=== PATIENT | female | born 1940 | race Caucasian/White ===

== ENCOUNTER → 2016-11-02 | Outpatient (CLI) | payer MEDICARE ==
[~2016-11-02] MED LIST: DENOSUMAB 60 MG/ML 1 ML SYRINGE SQ ONE
[2016-11-02 12:01] VITALS: BP 140/72; PULSE 66; RESP 14; TEMP 97.8
--- NOTE | 2016-11-15 14:42 | CDI ---
Please indicate, for medical necessity, whether the patient has bone metastases , which is indicated from the order that was checked off "patient being treated for bone metastases from solid tumor." Also, Prolia was given at time of visit. If you have any questions, please let me know. Thank you, YAZMIN Hess you may also contact Cristina Neol [phone] JEAN MARIE
--- NOTE | 2016-11-25 10:23 | CDI ---
Documentation Clarification Dear Dr. Torres, Please provide clarification of dx on your order for Prolia administration. Please confirm that patient had bone mets from breast in order for us to bill compliantly for medical necessity. You checked a box on the Prolia Order Form that said "Patient being seen for bone metastasis from solid tumor" PLEASE DICTATE A PROGRESS NOTE FOR THIS PATIENT THAT INDICATES IF PATIENT HAS BONE METS FROM BREAST AND IF YOU KNOW WHICH BONES ARE INVOLVED. If you have any questions, you many contact me between 8am and 5pm at [phone] Rut Noel MBA, [employer], [facility] Color Room Attendant, Theo AJ
== END | disposition home or self-care (01) ==
LOC: PROCWHC3 11:37
PROVIDERS: ATTEND Internal Medicine Hematology & Oncology
DX: M81.0 Age-related osteoporosis without current pathological fracture (principal); C50.812 Malignant neoplasm of overlapping sites of left female breast
CPT/HCPCS: 96372; J0897

== ENCOUNTER → 2017-11-08 | Outpatient (CLI) | payer MEDICARE ==
[2017-11-08 07:35] LABS: Blood Urea Nitrogen 12 mg/dL (7-17)
--- NOTE | 2017-11-08 10:55 | CT ---
EXAMINATION TYPE: CT abdomen w con DATE OF EXAM: 11/08/2017 COMPARISON: CT chest 04/06/2016 INDICATION: Abnormal liver function DLP: 420.10 mGycm, Automated exposure control for dose reduction was used. CONTRAST: 100 ml mL of Omnipaque 300. Study performed with Oral Contrast TECHNIQUE: Axial images were obtained from above the diaphragm to the pubic rami in the axial plane a t 5 mm thick sections. Reconstructed images are reviewed on the computer in the coronal plane. FINDINGS: Limited CT sections are obtained the lung bases. The lung bases are clear. Coronary artery calcific ation is present. Small hiatal hernia is present with some minimal contrast. CT ABDOMEN: Liver: Normal Spleen: Calcified splenic granuloma is present and stable. Pancreas: Normal Adrenal glands: The adrenal glands are normal. Gallbladder: Cholesterol gallstone is not excluded. Gallbladder otherwise appears unremarkable. Kidneys: No masses are evident. No hydronephrosis is present. No cysts are present. Delayed images were obtained through the kidneys, which remain unremarkable. Aorta: Vascular calcification is within the aorta. Inferior vena cava: Normal. Loops of bowel distended with oral contrast appear unremarkable. There are loops of bowel without con trast limiting their evaluation. Some scattered fecal debris is within the colon. There is made of a superior endplate compression deformity of L3.[address]: 1[address] Un[address] CT with attention to the liver. 2. Possible cholesterol gallstone.
== END | disposition home or self-care (01) ==
LOC: RADCTMAIN 06:53
PROVIDERS: ATTEND Internal Medicine Hematology & Oncology
DX: C18.7 Malignant neoplasm of sigmoid colon (principal); C50.812 Malignant neoplasm of overlapping sites of left female breast; R94.5 Abnormal results of liver function studies; Z88.8 Allergy status to other drugs, medicaments and biological substances; Z88.6 Allergy status to analgesic agent
CPT/HCPCS: 82565; 84520; 74160; 36415; Q9967

== ENCOUNTER 2018-02-14 09:03 | Day surgery (SDC) | payer MEDICARE ==
[2018-02-14 09:33] LABS: Mean Platelet Volume 7.5; Platelet Count 261 k/uL (150-450)
[2018-02-14] MEDS ORDERED: HYDROmorphone 2 MG TAB PO STA (09:37)
[2018-02-14 09:51] LABS: INR 1.1 (<1.2); Prothrombin Time 10.5 sec (9.0-12.0)
--- NOTE | 2018-02-14 10:35 | CT ---
EXAMINATION TYPE: CT biopsy liver DATE OF EXAM: 02/14/2018 COMPARISON: NONE HISTORY: Increased liver function CT DLP: 676mGycm PROCEDURE: The risks, applications, benefits and alternatives, were discussed with the patient and questions wer e answered. Informed consent was obtained. The patient was placed supine on the fluoroscopic table, prepped and draped in the usual sterile fashion. A 22-gauge system was utilized with direct passage of the needle into the right lobe liver lesion un cruz CT guidance. Samples were obtained with fine needle aspiration. Pathology confirmed adequate sa mple. The patient was stable throughout procedure and remained stable upon discharge from radiology. All e lements of maximal barrier and sterile technique were utilized. IMPRESSION: 1. Successful right lobe liver mass fine needle aspiration under CT guidance.
[2018-02-14 11:13] VITALS: BMI 22.4
[2018-02-14 12:42] VITALS: TEMP 98.8
[2018-02-14 14:42] VITALS: BP 130/64; PULSE 76; RESP 16
== END 2018-02-14 15:00 | disposition home or self-care (01) ==
LOC: RADPROMAIN 09:03 → 3SUR 10:30 → RADPROMAIN 15:00
PROVIDERS: ATTEND Internal Medicine Gastroenterology
DX: B17.9 Acute viral hepatitis, unspecified (principal); K74.0 Hepatic fibrosis
CPT/HCPCS: 47000; 77012; 85049; 85610; 88307; 88313; 88342

== ENCOUNTER → 2018-03-20 | Outpatient (CLI) | payer MEDICARE ==
[2018-03-20 08:22] LABS: Bilirubin, Delta 0.3 mg/dL (0.0-0.2); Bilirubin,Unconjugated 0.6 mg/dL (0.0-1.1); Total Bilirubin 0.9 mg/dL (0.2-1.3); Total Protein 7.9 g/dL (6.3-8.2)
[2018-03-20 16:51] LABS: Hepatitis A Antibody IgM Non-Reactive (Non-Reactive); Hepatitis B Core IgM Reactive (Non-Reactive)
--- NOTE | 2018-03-20 20:58 | MR ---
EXAMINATION TYPE: MR MRCP DATE OF EXAM: 03/20/2018 COMPARISON: CT abdomen 11/08/2017 and 04/06/2016 HISTORY: 78-year-old female INCREASED LIVER FUNCTIONS Technique: Multiplanar, multisequence images of the abdomen were acquired without contrast. Highly T2 weighted sequences were obtained of the pancreatic biliary system. Rotational 3-D reconstructions ge nerated on a dedicated independent workstation. FINDINGS: Small hiatal hernia. There is loss of signal in the liver on out of phase T1 weighted sequences suggesting underlying fatt y infiltration. The liver is mildly enlarged measuring 18.9 cm and there are hazy areas of increased T2 signal which also suggests fatty infiltration. Bile duct measures 7 mm, acceptable for patient's age. No suspicious intraluminal filling defect. The re is normal distal tapering and slight prominence to the intrahepatic system also felt to be accepta ble given patient's age. There is layering gravel/sludge within the gallbladder. No abnormal distention or surrounding inflamm ation. The flow void for the main portal vein is maintained. Adrenal glands, kidneys, spleen, and pancreas show no gross abnormality. No upper abdominal lymphadenopathy, ascites fluid, or gross bowel abnormality. Stable L3 superior endplate deformity. Incidental moderate spinal canal stenosis at L3-L4 and moderate to severe at L2-L3. IMPRESSION: 1. Mild hepatomegaly (18.9 cm) with signal changes suggesting underlying hepatic steatosis. 2. Mild prominence to the biliary system but with normal distal tapering. This is within normal limit s given patient's age. No intraluminal filling defect. 3. Layering gravel/sludge in the gallbladder.
[2018-03-21 10:26] LABS: ANA Pattern Speckled
== END | disposition home or self-care (01) ==
LOC: RADMRIMAIN 06:46
PROVIDERS: ATTEND Physician Assistant
DX: R16.0 Hepatomegaly, not elsewhere classified (principal)
CPT/HCPCS: 36415; 74181; 80074; 80076; 83516; 86038; 86039; 87340

== ENCOUNTER → 2018-03-23 | Outpatient (CLI) | payer MEDICARE ==
[2018-03-23 15:55] LABS: Alpha Fetoprotein, Tumor Mkr 11.4 ng/mL (0.0-7.9)
[2018-03-23 16:22] LABS: Hepatitis B Surface AB- Quant 3.5 mIU/mL
== END | disposition home or self-care (01) ==
LOC: LABWHC1 09:57
PROVIDERS: ATTEND Physician Assistant
DX: R76.8 Other specified abnormal immunological findings in serum (principal)
CPT/HCPCS: 36415; 82105; 86706; 86707; 87350; 87517

== ENCOUNTER → 2018-04-25 | Outpatient (CLI) | payer MEDICARE ==
--- NOTE | 2018-04-25 17:16 | BD ---
EXAMINATION TYPE: Axial Bone Density DATE OF EXAM: 04/25/2018 COMPARISON: 04/20/2016 CLINICAL HISTORY: Height: 62.7 IN Weight: 128 LBS FRAX RISK QUESTIONS: Family History (Parent hip fracture): YES MOTHER History of Fracture in Adulthood: RT ANKLE AGE 58 Secondary Osteoporosis: 3. Menopause before 45: YES AGE 41 5. Chronic liver disease: AUTO IMMUNE HEPATITIS Rheumatoid Arthritis: YES RISK FACTORS HISTORY OF: Family History of Osteoporosis: YES MOTHER Active: MODERATE Diet low in dairy products/other sources of calcium: YES Postmenopausal woman: AGE 41 Poor Health: YES MEDICATIONS: Additional Medications: CALCIUM WITH VIT D, ARIMIDEX, BLOOD PRESSURE PILLS Additional History: BREAST CANCER WITH CHEMO AND RADIATION 2012 EXAM MEASUREMENTS: Bone mineral densitometry was performed using the i-nexus System. Bone mineral density as measured about the Lumbar spine is: ----- L1-L4(G/cm2): 1.200 T Score Values are as follows: ----- L2: -0.1 ----- L3: 1.3 ----- L4: 0.4 ----- L1-L4: 0.2 Bone mineral density has: Increased 1.4% since study of: 04/20/2016 Bone mineral density about the R hip (g/cm2): 0.905 Bone mineral density about the L hip (g/cm2): 0.915 T Score values are as follows: -----R Neck: -1.0 -----L Neck: -0.9 -----R Total: -1.4 -----L Total: -1.1 Bone mineral density has: Decreased -5.5% since study of: 04.20.2016 IMPRESSION: Osteopenia (T Score between -2.5 and -1). There is slightly increased risk of fracture and the patient may be considered for treatment. Re-Screen 2-5 years. NOTE: T-SCORE=SD OF THE YOUNG ADULT MEAN.
== END | disposition home or self-care (01) ==
LOC: RADBDWWP 07:45
PROVIDERS: ATTEND Internal Medicine Hematology & Oncology
DX: C50.812 Malignant neoplasm of overlapping sites of left female breast (principal); M85.80 Other specified disorders of bone density and structure, unspecified site
CPT/HCPCS: 77080

== ENCOUNTER → 2018-06-04 | Outpatient (CLI) | payer MEDICARE ==
[2018-06-04 17:54] LABS: HCT 41.4 % (34.0-46.0); MCH 28.4 pg (25.0-35.0); MCHC 33.9 g/dL (31.0-37.0); MCV 83.7 fL (80.0-100.0); Mean Platelet Volume 7.2; Platelet Count 341 k/uL (150-450); RBC 4.95 m/uL (3.80-5.40); RDW 13.6 % (11.5-15.5); WBC 6.1 k/uL (3.8-10.6)
[2018-06-04 18:14] LABS: ALT 48 U/L (9-52); AST 71 U/L (14-36); Albumin 3.7 g/dL (3.5-5.0); Alkaline Phosphatase 82 U/L (38-126); Anion Gap 8 mmol/L; Blood Urea Nitrogen 21 mg/dL (7-17); Calcium 10.2 mg/dL (8.4-10.2); Carbon Dioxide 28 mmol/L (22-30); Chloride 103 mmol/L (98-107); Glucose 86 mg/dL (74-99); Potassium 4.1 mmol/L (3.5-5.1); Sodium 139 mmol/L (137-145); Total Bilirubin 1.1 mg/dL (0.2-1.3); Total Protein 7.5 g/dL (6.3-8.2)
== END ==
LOC: LABWHC1 17:21
PROVIDERS: ATTEND Physician Assistant
DX: B16.9 Acute hepatitis B without delta-agent and without hepatic coma (principal)
CPT/HCPCS: 36415; 80053; 85027; 86707; 87350; 87517

== ENCOUNTER → 2018-09-21 | Outpatient (CLI) | payer MEDICARE ==
[2018-09-21 17:47] LABS: HCT 40.8 % (34.0-46.0); HGB 12.9 gm/dL (11.4-16.0); MCHC 31.7 g/dL (31.0-37.0); MCV 85.3 fL (80.0-100.0); Mean Platelet Volume 6.8; Platelet Count 286 k/uL (150-450); RBC 4.78 m/uL (3.80-5.40); RDW 13.3 % (11.5-15.5); WBC 4.7 k/uL (3.8-10.6)
[2018-09-21 22:49] LABS: Albumin 3.7 g/dL (3.80-4.90); Albumin/Globulin Ratio 0.97 (1.20-2.10); Anion Gap 10.1 mmol/L (4.00-12.00); Calcium 9.4 mg/dL (8.7-10.3); Carbon Dioxide 26.9 mmol/L (21.6-31.8); Globulin 3.8 g/dL (1.6-3.3); Potassium 3.8 mmol/L (3.5-5.5); Total Bilirubin 0.6 mg/dL (0.3-1.2); Total Protein 7.5 g/dL (6.2-8.2)
[2018-09-25 12:57] LABS: Hepatitis B Virus DNA DETECTED (Not detected); Log HBV IU/mL 6.35 (<1.00)
[2018-09-25 13:37] LABS: Hepatitis BE Antibody NEG (Negative); Hepatitis BE Antigen POS (Negative)
== END | disposition home or self-care (01) ==
LOC: LABWHC1 16:40
PROVIDERS: ATTEND Physician Assistant
DX: B16.9 Acute hepatitis B without delta-agent and without hepatic coma (principal)
CPT/HCPCS: 36415; 80053; 85027; 86707; 87350; 87517

== ENCOUNTER → 2019-01-14 | Outpatient (CLI) | payer MEDICARE ==
--- NOTE | 2019-01-14 10:49 | US ---
LOWER EXTREMITY VENOUS INSUFFICIENCY SIDE PERFORMED: Bilateral 1) Color flow is present and patency is documented in the following vessels. No DVT or SVT is noted . EIV Common Femoral Vein Deep Femoral Vein Femoral Vein Popliteal Vein Proximal Calf Veins Greater Saph Vein Upper Small Saph Vein 2) There is venous reflux noted at the following venous levels: Left GSV. Right : EIV & GSV the valve does not close at all, so would be considered insufficient.
[2019-01-14 11:03] LABS: HCT 39.3 % (34.0-46.0); HGB 12.6 gm/dL (11.4-16.0); MCH 27.2 pg (25.0-35.0); MCHC 32.1 g/dL (31.0-37.0); MCV 84.7 fL (80.0-100.0); Mean Platelet Volume 7.7; Platelet Count 238 k/uL (150-450); RBC 4.64 m/uL (3.80-5.40)
[2019-01-14 11:18] LABS: ALT 46 U/L (9-52); AST 83 U/L (14-36); Albumin 3.5 g/dL (3.5-5.0); Alkaline Phosphatase 98 U/L (38-126); Anion Gap 3 mmol/L; Blood Urea Nitrogen 14 mg/dL (7-17); Calcium 9.3 mg/dL (8.4-10.2); Carbon Dioxide 32 mmol/L (22-30); Chloride 106 mmol/L (98-107); Glucose 73 mg/dL (74-99); Sodium 141 mmol/L (137-145); Total Bilirubin 0.4 mg/dL (0.2-1.3); Total Protein 7.5 g/dL (6.3-8.2)
--- NOTE | 2019-01-16 13:34 | P.ARTDOP ---
Arterial Doppler LOWER EXTREMITY ARTERIAL DOPPLER: DATE OF SERVICE: 01/14/2019 Reason for study: Bilateral calf ulcers. Doppler waveforms: Multiphasic bilaterally throughout. Pulse volume recording: []. Pressure gradients: None. Ankle-brachial indices: Cannot occlude. Toe pressures: 97 on the right, 97 on the left Impression: Normal study given normal waveforms and normal toe pressures. Nonocclusive viable ankle pressures may be related to calcific wall disease which is not hemodynamically significant..
== END | disposition home or self-care (01) ==
LOC: RADUSWWP 09:02
PROVIDERS: ATTEND Thoracic Surgery (Cardiothoracic Vascular Surgery)
DX: M79.604 Pain in right leg (principal); M79.605 Pain in left leg; E63.8 Other specified nutritional deficiencies; L97.212 Non-pressure chronic ulcer of right calf with fat layer exposed
CPT/HCPCS: 36415; 80053; 84134; 85027; 93923; 93970

== ENCOUNTER 2019-01-26 16:08 | Emergency (ER) | payer MEDICARE ==
[2019-01-26 16:19] VITALS: BP 136/69; PULSE 87; RESP 18; TEMP 99
--- NOTE | 2019-01-26 17:09 | ED ---
General Adult HPI - General Chief complaint: Skin/Abscess/Foreign Body Stated complaint: wounds on legs/stomach Time Seen by Provider: 01/26/19 16:31 Source: patient Mode of arrival: ambulatory Limitations: no limitations - History of Present Illness Initial comments: Dictation was produced using Jildy dictation software. please excuse any grammatical, word or spelling errors. Chief Complaint: 70-year-old female past medical history of breast cancer, hypertension, rheumatoid arthritis, bilateral lower extremity wounds presents with rash. History of Present Illness: 70-year-old female presents with rash that started this morning. Patient is currently undergoing dressing changes and topical treatment for bilateral extremity wounds. She is resting changes by home health care nurses. Patient noted her blood to start her legs and go up to her chest area. Patient denies fever, chills or night sweats. Patient has no complaints at this time. Patient is currently off her rheumatoid medications due to concerns of active hepatitic infection. Patient denies any runny nose, chills. No constitutional symptoms. The ROS documented in this emergency department record has been reviewed and confirmed by me. Those systems with pertinent positive or negative responses have been documented in the HPI. All other systems are other negative and/or noncontributory. PHYSICAL EXAM: General Impression: Alert and oriented x3, not in acute distress HEENT: Normocephalic atraumatic, extra-ocular movements intact, pupils equal and reactive to light bilaterally, mucous membranes moist. Cardiovascular: Heart regular rate and rhythm, S1&S2 audible, no murmurs, rubs or gallops Chest: Lungs clear to auscultation bilaterally, no rhonchi, no wheeze, no rales Abdomen: Bowel sounds present, abdomen soft, non-tender, non-distended, no organomegaly Musculoskeletal: Pulses present and equal in all extremities, no peripheral edema Motor: no focal deficits noted Neurological: CN II-XII grossly intact, no focal motor or sensory deficits noted Skin: Erythematous macules with pale center. No oral lesions, no conjunctival rash. Psych: Normal affect and mood ED course: 70-year-old female clinical presentation consistent with erythema multiforme. Patient appears to have the minor form given that there is no mucous membrane involvement. Patient's glucose presentation could also be secondary to drug reaction given that she was started on new topical medications. Patient otherwise has negative physical examination. Patient advised that this is self-limiting in nature. She should follow-up with primary care physician upon discharge. Return parameters discussed. Patient clear for discharge. - Related Data Home Medications Medication Instructions Recorded Confirmed Anastrozole [Arimidex] 1 mg PO DAILY 03/05/14 01/29/18 Metoprolol Tartrate [Lopressor] 50 mg PO BID 03/05/14 11/02/16 amLODIPine BESYLATE [Norvasc] 10 mg PO QAM 03/05/14 02/14/18 Citracal Petites 2 tab PO BID 11/02/16 02/14/18 Ibuprofen [Advil] 200 mg PO BID 01/29/18 02/14/18 methylPREDNISolone [Medrol Dose 4 mg PO DIRECTED 01/29/18 01/29/18 Pack] predniSONE 5 mg PO DIRECTED 02/14/18 02/14/18 Allergies Allergy/AdvReac Type Severity Reaction Status Date / Time Iodinated Contrast- Oral and Allergy "UNSURE OF Verified 01/26/19 16:19 IV Dye ALG BUT [Iodinated Contrast Media - PASSED OUT IV Dye] W/ VOMITING" propoxyphene napsylate Allergy Unknown Verified 01/26/19 16:19 [From Darvocet-N 100] Review of Systems ROS Statement: Those systems with pertinent positive or pertinent negative responses have been documented in the HPI. ROS Other: All systems not noted in ROS Statement are negative. Past Medical History Past Medical History: Cancer, Hypertension, Osteoarthritis (OA), Rheumatoid Arthritis (RA) Additional Past Medical History / Comment(s): arthralgia,HX BREAST CA 2012 double mastectomy and 33 TX RADIATION treatments ,COLON CA 2012 with surgery, recent UTI-completed ABX. History of Any Multi-Drug Resistant Organisms: None Reported Past Surgical History: Bowel Resection, Breast Surgery, Hysterectomy, Joint Replacement Additional Past Surgical History / Comment(s): 06/20/16 Total R knee arthroplasty. Other surgical hx: tumor removed from colon, double mastectomy, colonoscopy / RT KNEE REPLACEMENT apr 2016 Past Anesthesia/Blood Transfusion Reactions: No Reported Reaction Additional Past Anesthesia/Blood Transfusion Reaction / Comment(s): no previous blood transfusion Past Psychological History: No Psychological Hx Reported Smoking Status: Never smoker Past Alcohol Use History: None Reported Past Drug Use History: None Reported - Past Family History Mother Additional Family Medical History / Comment(s): AGE 91 W/ PNEUMONIA Father Family Medical History: Rheumatoid Arthritis (RA) Additional Family Medical History / Comment(s): AT AGE 91 Brother(s) Family Medical History: Cancer Additional Family Medical History / Comment(s): LUNG CA #1 BROTHER AT AGE 46,#2 BROTHER AT AGE 63 General Exam Limitations: no limitations Course Vital Signs 01/26/19 16:16 Temperature 99.0 F Pulse Rate 87 Respiratory 18 Rate Blood Pressure 136/69 O2 Sat by Pulse 98 Oximetry Disposition Clinical Impression: Rash Disposition: HOME SELF-CARE Condition: Good Instructions (If sedation given, give patient instructions): Acute Rash (ED) Is patient prescribed a controlled substance at d/c from ED?: No Referrals: Abhinav Abreu III, MD [Primary Care Provider] - 1-2 days Time of Disposition: 17:09
== END 2019-01-26 17:19 | disposition home or self-care (01) ==
LOC: EC 16:08
DX: R21 Rash and other nonspecific skin eruption (principal); I10 Essential (primary) hypertension; M19.90 Unspecified osteoarthritis, unspecified site; M06.9 Rheumatoid arthritis, unspecified; Z85.038 Personal history of other malignant neoplasm of large intestine; Z96.651 Presence of right artificial knee joint; Z85.3 Personal history of malignant neoplasm of breast; Z79.1 Long term (current) use of non-steroidal anti-inflammatories (NSAID); Z79.52 Long term (current) use of systemic steroids; Z79.899 Other long term (current) drug therapy; Z91.041 Radiographic dye allergy status; Z88.5 Allergy status to narcotic agent
CPT/HCPCS: 99282

== ENCOUNTER → 2019-02-08 | Outpatient (CLI) | payer MEDICARE ==
--- NOTE | 2019-02-08 15:29 | NM ---
EXAMINATION TYPE: NM bone 3 phase DATE OF EXAM: 02/08/2019 COMPARISON: NONE HISTORY: Osteoporosis, open left leg wound, right calf ulcer and right foot ulcer, breast carcinoma Triple phase bone scintigraphy was performed following the injection of 21 mCi Tc 99m MDP. Immediate images and 4.5 hours post injection images acquired through the lower legs and feet. Delayed whole-b yanira scanning was performed. FINDINGS: There is increased blood flow and blood pool activity identified to the left leg as compared to the r ight. Delayed images show uptake within the feet which is relatively symmetric consistent with degene rative changes. Photopenic defect present in the right knee compatible with prior knee arthroplasty, some mild uptake along the proximal tibial aspect of the arthroplasty likely to due to normal stress changes, no convincing uptake to suggest infection.. Uptake within the left knee is likely due to ost eoarthritis. Uptake at the sternomanubrial joints likely is degenerative as is the uptake in the hand s, wrists, shoulders. Soft tissue uptake is normal. IMPRESSION: No scintigraphic evidence of osseous metastatic disease or osteomyelitis.
== END | disposition home or self-care (01) ==
LOC: RADNMMAIN 07:16
PROVIDERS: ATTEND Internal Medicine Infectious Disease
DX: L97.212 Non-pressure chronic ulcer of right calf with fat layer exposed (principal)
CPT/HCPCS: 78315; A9503

== ENCOUNTER → 2019-04-17 | Outpatient (CLI) | payer MEDICARE ==
[2019-04-17 07:36] LABS: Basophils % (A) 0 %; Eosinophils # (A) 0.3 k/uL (0-0.7); Eosinophils % (A) 8 %; HCT 36.9 % (34.0-46.0); Lymphocytes # (A) 0.5 k/uL (1.0-4.8); Lymphocytes % (A) 11 %; MCH 28.1 pg (25.0-35.0); MCHC 32.6 g/dL (31.0-37.0); MCV 86.2 fL (80.0-100.0); Mean Platelet Volume 7.7; Monocytes # (A) 0.1 k/uL (0-1.0); Monocytes % (A) 3 %; Neutrophils # (A) 3.3 k/uL (1.3-7.7); Neutrophils % (A) 78 %; Platelet Count 209 k/uL (150-450); RBC 4.29 m/uL (3.80-5.40); RDW 14.6 % (11.5-15.5); WBC 4.3 k/uL (3.8-10.6)
[2019-04-17 13:30] LABS: African American GFR (CKD) 100.5 (60.0-200.0); Albumin 3.1 g/dL (3.80-4.90); Anion Gap 5.3 mmol/L (4.00-12.00); Carbon Dioxide 31.7 mmol/L (21.6-31.8); Globulin 3.1 g/dL (1.6-3.3); Non-African American GFR(CKD) 86.7 (60.0-200.0); Potassium 3.6 mmol/L (3.5-5.5); Total Bilirubin 0.4 mg/dL (0.3-1.2); Total Protein 6.2 g/dL (6.2-8.2)
[2019-04-19 14:05] LABS: Hepatitis BE Antigen POS (Negative)
[2019-04-19 14:07] LABS: Hepatitis BE Antibody NEG (Negative)
[2019-04-19 15:22] LABS: Hepatitis B Virus DNA DETECTED (Not detected)
== END | disposition home or self-care (01) ==
LOC: LABWHC1 07:08
DX: B18.1 Chronic viral hepatitis B without delta-agent (principal)
CPT/HCPCS: 36415; 80053; 82105; 85025; 86707; 87350; 87517

== ENCOUNTER → 2019-05-15 | Outpatient (CLI) | payer MEDICARE ==
--- NOTE | 2019-05-15 09:27 | US ---
EXAMINATION TYPE: US liver DATE OF EXAM: 05/15/2019 COMPARISON: CT CLINICAL HISTORY: R74.8 ABnormal Labs. Patient stated has hepatitis B; history of Breast CA/ bilatera l mastectomy, and colon CA. EXAM MEASUREMENTS: Liver Length: 15.8 cm Gallbladder Wall: 0.1 cm CBD: 0.7 cm Right Kidney: 11.8 x 5.2 x 4.1 cm Pancreas: heterogeneous tail Liver: wnl Gallbladder: multiple shadowing stones noted in fundus Evidence for sonographic Haas's sign: no CBD: wnl and is age appropriate for 7th decade Right Kidney: wnl IMPRESSION: 1. Debris filled gallbladder. Small gallstones or sludge could be considered.
== END | disposition home or self-care (01) ==
LOC: RADUSWWP 07:36
PROVIDERS: ATTEND Internal Medicine Gastroenterology
DX: R93.2 Abnormal findings on diagnostic imaging of liver and biliary tract (principal)
CPT/HCPCS: 76705

== ENCOUNTER → 2019-06-21 | Outpatient (CLI) | payer MEDICARE ==
--- NOTE | 2019-06-21 12:47 | NM ---
EXAMINATION TYPE: NM bone 3 phase DATE OF EXAM: 06/21/2019 COMPARISON: Prior 3 phase bone scan 02/08/2019, left foot 05/21/2019 HISTORY: Cellulitis left lower limb Triple phase bone scintigraphy was performed following the injection of 22.9 mCi Tc 99m MDP. Immedia te images and 3 hours post injection images acquired. FINDINGS: Increased blood flow blood pool imaging is noted to the left lower extremity. Some mild increased upt greg noted to the lateral aspect of the left foot on blood pool images, delayed images. Delayed imagin g through the feet shows relatively symmetric uptake likely degenerative within the feet. IMPRESSION: Findings likely to represent cellulitis, no evident osteomyelitis. Foot MRI could be performed for in creased sensitivity and specificity as indicated.
== END | disposition home or self-care (01) ==
LOC: RADNMMAIN 07:26
PROVIDERS: ATTEND Family Medicine
DX: L97.212 Non-pressure chronic ulcer of right calf with fat layer exposed (principal); L97.222 Non-pressure chronic ulcer of left calf with fat layer exposed; L03.116 Cellulitis of left lower limb; M05.20 Rheumatoid vasculitis with rheumatoid arthritis of unspecified site
CPT/HCPCS: 78315; A9503

== ENCOUNTER → 2019-10-14 | Outpatient (CLI) | payer MEDICARE ==
[2019-10-14 07:49] LABS: Basophils % (A) 0 %; Eosinophils # (A) 0.3 k/uL (0-0.7); Eosinophils % (A) 6 %; HCT 39.5 % (34.0-46.0); HGB 12.7 gm/dL (11.4-16.0); Lymphocytes # (A) 0.5 k/uL (1.0-4.8); Lymphocytes % (A) 11 %; MCH 26.8 pg (25.0-35.0); MCHC 32.2 g/dL (31.0-37.0); MCV 83.2 fL (80.0-100.0); Mean Platelet Volume 7.9; Monocytes # (A) 0.1 k/uL (0-1.0); Monocytes % (A) 2 %; Neutrophils # (A) 3.4 k/uL (1.3-7.7); Neutrophils % (A) 80 %; Platelet Count 199 k/uL (150-450); RBC 4.75 m/uL (3.80-5.40); RDW 13.4 % (11.5-15.5); WBC 4.2 k/uL (3.8-10.6)
[2019-10-14 11:47] LABS: African American GFR (CKD) 100.5 (60.0-200.0); Albumin 3.7 g/dL (3.80-4.90); Albumin/Globulin Ratio 1.23 (1.60-3.17); Anion Gap 6.4 mmol/L (4.00-12.00); BUN/Creat Ratio 21.67 Ratio (12.00-20.00); Calcium 8.8 mg/dL (8.7-10.3); Carbon Dioxide 28.6 mmol/L (21.6-31.8); Non-African American GFR(CKD) 86.7 (60.0-200.0); Potassium 3.6 mmol/L (3.5-5.5); Total Bilirubin 0.5 mg/dL (0.3-1.2); Total Protein 6.7 g/dL (6.2-8.2)
[2019-10-14 11:52] LABS: Alpha Fetoprotein, Tumor Mkr 2.6 ng/mL (0.0-7.9)
[2019-10-14 14:30] LABS: Hepatitis B Surface Antigen Reactive (Non-Reactive)
[2019-10-15 13:28] LABS: Hepatitis BE Antibody NEG (Negative)
[2019-10-15 16:24] LABS: Hepatitis B Virus DNA DETECTED (Not detected); Hepatitis B Virus DNA, Quant 43 IU/mL (<10); Log HBV IU/mL 1.63 (<1.00)
== END | disposition home or self-care (01) ==
LOC: LABWHC1 07:24
PROVIDERS: ATTEND Physician Assistant
DX: B18.1 Chronic viral hepatitis B without delta-agent (principal)
CPT/HCPCS: 36415; 80053; 82105; 85025; 86707; 87340; 87517

== ENCOUNTER 2019-10-30 12:42 | Inpatient (IN) | payer MEDICARE ==
[2019-10-30] MEDS ORDERED: PIPERACILLIN-TAZOBACTAM 3.375 GM in SODIUM CHLORIDE 0.9% 100 ML IVPB STA (13:50)
[2019-10-30] MEDS ORDERED: VANCOMYCIN IV PER PHARMACY 1 EACH MISC MISCELLANE PRN ×2 (13:50→16:36)
[2019-10-30] MEDS ORDERED: VANCOMYCIN 1,000 MG in SODIUM CHLORIDE 0.9% 250 ML IVPB STA (13:54)
[2019-10-30 14:13] LABS: Basophils % (A) 0 %; Eosinophils # (A) 0.3 k/uL (0-0.7); Eosinophils % (A) 5 %; HCT 39.2 % (34.0-46.0); HGB 12.9 gm/dL (11.4-16.0); Lymphocytes # (A) 0.7 k/uL (1.0-4.8); Lymphocytes % (A) 12 %; MCH 26.8 pg (25.0-35.0); MCHC 32.8 g/dL (31.0-37.0); MCV 81.8 fL (80.0-100.0); Monocytes # (A) 0.2 k/uL (0-1.0); Monocytes % (A) 3 %; Neutrophils # (A) 4.5 k/uL (1.3-7.7); Neutrophils % (A) 79 %; Platelet Count 197 k/uL (150-450); RBC 4.79 m/uL (3.80-5.40); RDW 13.6 % (11.5-15.5); WBC 5.7 k/uL (3.8-10.6)
--- NOTE | 2019-10-30 14:13 | ED ---
General Adult HPI - General Chief complaint: Wound/Laceration Stated complaint: wound on foot Time Seen by Provider: 10/30/19 12:45 Source: patient, RN notes reviewed, old records reviewed Mode of arrival: wheelchair Limitations: no limitations - History of Present Illness Initial comments: This is a 79-year-old female who has a significant history of peripheral vascular disease. Patient does have multiple wounds on both of her feet. Patient has been taken care of by the wound center they evaluated the patient recently and decided that the patient needed to come in the hospital to be admitted to get IV antibiotics and eventually go to custodial if she get a little bit better care until the wounds heal. His any fever chills. Patient denies any increased erythema or streaking of the legs. Patient states the wounds appear to be getting bigger and deeper. Patient denies any other symptoms at this time. - Related Data Home Medications Medication Instructions Recorded Confirmed Anastrozole [Arimidex] 1 mg PO DAILY 03/05/14 01/29/18 Metoprolol Tartrate [Lopressor] 50 mg PO BID 03/05/14 11/02/16 amLODIPine BESYLATE [Norvasc] 10 mg PO QAM 03/05/14 02/14/18 Citracal Petites 2 tab PO BID 11/02/16 02/14/18 Ibuprofen [Advil] 200 mg PO BID 01/29/18 02/14/18 methylPREDNISolone [Medrol Dose 4 mg PO DIRECTED 01/29/18 01/29/18 Pack] predniSONE 5 mg PO DIRECTED 02/14/18 02/14/18 Allergies Allergy/AdvReac Type Severity Reaction Status Date / Time clindamycin Allergy Rash/Hives Verified 10/30/19 12:46 Iodinated Contrast Media Allergy "UNSURE OF Verified 10/30/19 12:46 [Iodinated Contrast Media - ALG BUT IV Dye] PASSED OUT W/ VOMITING" propoxyphene napsylate Allergy Unknown Verified 10/30/19 12:46 [From Parveent-N 100] Review of Systems ROS Statement: Those systems with pertinent positive or pertinent negative responses have been documented in the HPI. ROS Other: All systems not noted in ROS Statement are negative. Past Medical History Past Medical History: Cancer, Hypertension, Osteoarthritis (OA), Rheumatoid Arthritis (RA) Additional Past Medical History / Comment(s): arthralgia,HX BREAST CA 2013 double mastectomy and 33 TX RADIATION treatments ,COLON CA 2012 with surgery, recent UTI-completed ABX. History of Any Multi-Drug Resistant Organisms: MRSA Date of last positivie culture/infection: 09/16/19 MDRO Source:: FOOT LT Past Surgical History: Bowel Resection, Breast Surgery, Hysterectomy, Joint Replacement Additional Past Surgical History / Comment(s): 06/20/16 Total R knee arthroplasty. Other surgical hx: tumor removed from colon, double mastectomy, colonoscopy / RT KNEE REPLACEMENT apr 2016 Past Anesthesia/Blood Transfusion Reactions: No Reported Reaction Additional Past Anesthesia/Blood Transfusion Reaction / Comment(s): no previous blood transfusion Past Psychological History: No Psychological Hx Reported Smoking Status: Never smoker Past Alcohol Use History: None Reported Past Drug Use History: None Reported - Past Family History Mother Additional Family Medical History / Comment(s): AGE 91 W/ PNEUMONIA Father Family Medical History: Rheumatoid Arthritis (RA) Additional Family Medical History / Comment(s): AT AGE 91 Brother(s) Family Medical History: Cancer Additional Family Medical History / Comment(s): LUNG CA #1 BROTHER AT AGE 46,#2 BROTHER AT AGE 63 General Exam - General Exam Comments Initial Comments: GENERAL: Patient is well-developed and well-nourished. Patient is nontoxic and well- hydrated and is in mild distress. ENT: Neck is soft and supple. No significant lymphadenopathy is noted. Oropharynx is clear. Moist mucous membranes. Neck has full range of motion without eliciting any pain. EYES: The sclera were anicteric and conjunctiva were pink and moist. Extraocular movements were intact and pupils were equal round and reactive to light. Eyelids were unremarkable. PULMONARY: Unlabored respirations. Good breath sounds bilaterally. No audible rales rhonchi or wheezing was noted. CARDIOVASCULAR: There is a regular rate and rhythm without any murmurs gallops or rubs. ABDOMEN: Soft and nontender with normal bowel sounds. SKIN: Skin is clear with no lesions or rashes and otherwise unremarkable. NEUROLOGIC: Patient is alert and oriented x3. Cranial nerves II through XII are grossly intact. Motor and sensory are also intact. Normal speech, volume and content. Symmetrical smile. MUSCULOSKELETAL: Normal extremities with adequate strength and full range of motion. Patient has a wound on the top of the left foot also on the lateral aspect of the foot below the lateral malleolus. Patient also has a wound on the lateral aspect of the right foot below the lateral malleolus which appears to be healing fairly well or no signs of erythema on either foot but there is some pus coming from the wound on the top of the left foot. LYMPHATICS: No significant lymphadenopathy is noted PSYCHIATRIC: Normal psychiatric evaluation. Limitations: no limitations Course Vital Signs 10/30/19 12:43 Temperature 97.8 F Pulse Rate 78 Respiratory 18 Rate Blood Pressure 118/69 O2 Sat by Pulse 98 Oximetry Medical Decision Making - Medical Decision Making EKG shows sinus rhythm with occasional PVC at 60 bpm WV interval is 160 QRS is 70 QT interval 412 QTC is 438. Patient's EKG shows no ST segment elevation or depression. X-ray of the foot showed no convincing evidence of osteomyelitis - Lab Data Result diagrams: 10/30/19 13:15 10/30/19 13:15 Lab Results 10/30/19 10/30/19 10/30/19 Range/Units 13:15 13:15 13:15 WBC 5.7 (3.8-10.6) k/uL RBC 4.79 (3.80-5.40) m/uL Hgb 12.9 (11.4-16.0) gm/dL Hct 39.2 (34.0-46.0) % MCV 81.8 (80.0-100.0) fL MCH 26.8 (25.0-35.0) pg MCHC 32.8 (31.0-37.0) g/dL RDW 13.6 (11.5-15.5) % Plt Count 197 (150-450) k/uL Neutrophils % 79 % Lymphocytes % 12 % Monocytes % 3 % Eosinophils % 5 % Basophils % 0 % Neutrophils # 4.5 (1.3-7.7) k/uL Lymphocytes # 0.7 L (1.0-4.8) k/uL Monocytes # 0.2 (0-1.0) k/uL Eosinophils # 0.3 (0-0.7) k/uL Basophils # 0.0 (0-0.2) k/uL PT 10.0 (9.0-12.0) sec INR 1.0 (<1.2) APTT 24.3 (22.0-30.0) sec Sodium 137 (137-145) mmol/L Potassium 4.4 (3.5-5.1) mmol/L Chloride 102 (98-107) mmol/L Carbon Dioxide 26 (22-30) mmol/L Anion Gap 9 mmol/L BUN 19 H (7-17) mg/dL Creatinine 0.63 (0.52-1.04) mg/dL Est GFR (CKD-EPI)AfAm >90 (>60 ml/min/1.73 sqM) Est GFR (CKD-EPI)NonAf 86 (>60 ml/min/1.73 sqM) Glucose 92 (74-99) mg/dL Plasma Lactic Acid Jas (0.7-2.0) mmol/L Calcium 9.7 (8.4-10.2) mg/dL Total Bilirubin 0.4 (0.2-1.3) mg/dL AST 54 H (14-36) U/L ALT 25 (4-34) U/L Alkaline Phosphatase 95 (38-126) U/L Total Protein 7.5 (6.3-8.2) g/dL Albumin 3.8 (3.5-5.0) g/dL 10/30/19 Range/Units 14:13 WBC (3.8-10.6) k/uL RBC (3.80-5.40) m/uL Hgb (11.4-16.0) gm/dL Hct (34.0-46.0) % MCV (80.0-100.0) fL MCH (25.0-35.0) pg MCHC (31.0-37.0) g/dL RDW (11.5-15.5) % Plt Count (150-450) k/uL Neutrophils % % Lymphocytes % % Monocytes % % Eosinophils % % Basophils % % Neutrophils # (1.3-7.7) k/uL Lymphocytes # (1.0-4.8) k/uL Monocytes # (0-1.0) k/uL Eosinophils # (0-0.7) k/uL Basophils # (0-0.2) k/uL PT (9.0-12.0) sec INR (<1.2) APTT (22.0-30.0) sec Sodium (137-145) mmol/L Potassium (3.5-5.1) mmol/L Chloride (98-107) mmol/L Carbon Dioxide (22-30) mmol/L Anion Gap mmol/L BUN (7-17) mg/dL Creatinine (0.52-1.04) mg/dL Est GFR (CKD-EPI)AfAm (>60 ml/min/1.73 sqM) Est GFR (CKD-EPI)NonAf (>60 ml/min/1.73 sqM) Glucose (74-99) mg/dL Plasma Lactic Acid Jas 1.0 (0.7-2.0) mmol/L Calcium (8.4-10.2) mg/dL Total Bilirubin (0.2-1.3) mg/dL AST (14-36) U/L ALT (4-34) U/L Alkaline Phosphatase (38-126) U/L Total Protein (6.3-8.2) g/dL Albumin (3.5-5.0) g/dL Disposition Clinical Impression: Wound infection Disposition: ADMITTED IP TO THIS HOSP Referrals: Abhinav Abreu III, MD [Primary Care Provider] - 1-2 days Time of Disposition: 16:35
[2019-10-30 14:28] LABS: ALT 25 U/L (4-34); AST 54 U/L (14-36); African American GFR (CKD) >90 (>60 ml/min/1.73 sqM); Albumin 3.8 g/dL (3.5-5.0); Alkaline Phosphatase 95 U/L (38-126); Anion Gap 9 mmol/L; Blood Urea Nitrogen 19 mg/dL (7-17); Calcium 9.7 mg/dL (8.4-10.2); Carbon Dioxide 26 mmol/L (22-30); Chloride 102 mmol/L (98-107); Glucose 92 mg/dL (74-99); Non-African American GFR(CKD) 86 (>60 ml/min/1.73 sqM); Potassium 4.4 mmol/L (3.5-5.1); Sodium 137 mmol/L (137-145); Total Bilirubin 0.4 mg/dL (0.2-1.3); Total Protein 7.5 g/dL (6.3-8.2)
[2019-10-30 14:32] LABS: Partial Thromboplastin Time 24.3 sec (22.0-30.0)
--- NOTE | 2019-10-30 14:35 | XR ---
EXAMINATION TYPE: XR foot complete LT DATE OF EXAM: 10/30/2019 CLINICAL HISTORY: Focal pain and swelling, infection dorsal surface fourth and fifth metatarsals, rul e out osteomyelitis. TECHNIQUE: Frontal, lateral, and oblique images of the left foot are obtained. COMPARISON: Prior left foot x-ray May 21, 2019. Most recent 3 phase bone scan June 21, 2019. FINDINGS: Demineralization is redemonstrated which is noted to low radiographic sensitivity for evalu ation of fine anatomic detail. In addition there is marked flexion of the toes makes evaluation at th is level suboptimal. There is hallux valgus positioning first metatarsal phalangeal joint with mild to moderate narrowing and spurring. Truncation of the first distal phalanx is redemonstrated. There is joint space narrowin g throughout the toes redemonstrated. Osseous overlap makes evaluation suboptimal. There is narrowing and spurring at base of metatarsals. No new definitive cortical destruction or periosteal reaction i s seen. Large superior and moderate-sized inferior calcaneal spurs are redemonstrated. Vascular calci fication again seen. IMPRESSION: There is no convincing radiographic evidence for acute osteomyelitis. No significant bryce nge from most recent x-ray.
[2019-10-30] MEDS ORDERED: SODIUM CHLORIDE 0.9% 1,000 ML IV ONE (16:35)
[2019-10-30] MEDS ORDERED: ALPRAZolam 0.25 MG TAB PO PRN (19:18)
--- NOTE | 2019-10-30 19:53 | HP ---
HISTORY AND PHYSICAL DATE OF SERVICE: 10/30/2019 CHIEF COMPLAINT: Bilateral leg wound infection, left more than the right. HISTORY OF PRESENT ILLNESS: This 79-year-old woman with a past medical history of multiple medical problems, including hypertension, history of DJD, rheumatoid arthritis, history of breast cancer, history of colon cancer, history of bowel resection, being followed by Dr. Abreu in the outpatient setting, was having bilateral wounds for several months. The patient apparently is attending Wound Care and Dr. Rivera and Dr. Garcia have seen the patient previously. Currently, because of lack of improvement, the patient was sent to [facility] and was admitted for further evaluation and treatment. There is no history of any fever, rigor or chills. No history of headache, loss of consciousness, seizures at this time. The patient had a bone scan in May last year which showed no evidence of osteomyelitis. PAST MEDICAL HISTORY: Hypertension DJD, history of rheumatoid arthritis, arthralgias, history of MRSA, history of bowel resection, breast surgery. HOME MEDICATIONS: 1. Norvasc 10 mg p.o. daily. 2. Lopressor 50 mg p.o. b.i.d. 3. Levaquin 500 mg p.o. daily. 4. Probiotic 1 p.o. daily. 5. Advil 200 mg p.o. b.i.d. 6. Entecavir 0.5 mg p.o. daily. 7. Citracal 2 tablets p.o. b.i.d. 8. Arimidex 1 mg p.o. daily. ALLERGIES: CLINDAMYCIN, IODINATED CONTRAST DYES AND PROPOXYPHENE. FAMILY HISTORY: History of rheumatoid arthritis in the family. SOCIAL HISTORY: No history of smoking. No history of alcohol. REVIEW OF SYSTEMS: ENT: Diminished hearing. Diminished vision. CARDIOVASCULAR SYSTEM: No angina, palpitations. RESPIRATORY SYSTEM: No cough, hemoptysis. GI: No nausea, vomiting. : No dysuria or retention. NERVOUS SYSTEM: No numbness, weakness. ALLERGY/IMMUNOLOGY: No asthma, hayfever. MUSCULOSKELETAL: As mentioned earlier. HEMATOLOGY/ONCOLOGY: No history of anemia. ENDOCRINE: No history of diabetes, hypothyroidism. CONSTITUTIONAL: As mentioned earlier. DERMATOLOGY: As mentioned earlier. RHEUMATOLOGY: As mentioned earlier. PSYCHIATRY: Negative. PHYSICAL EXAMINATION: Patient is alert, oriented x3. Pulse 90, blood pressure 147/78, respiration 18, temperature 97.9, pulse ox 97% on room air. HEENT: Conjunctivae normal. Oral mucosa moist. NECK: No jugular venous distention. No carotid bruit. No lymph node enlargement. CARDIOVASCULAR SYSTEM: S1, S2 muffled. No S3. No S4. RESPIRATORY SYSTEM: Breath sounds diminished at the bases. No rhonchi. No crackles. ABDOMEN: Soft, non-tender. No mass palpable. LEGS: Bilateral leg cellulitis and multiple ulcerations, especially on the left heel as well as the left dorsum of the feet present. Some surrounding cellulitis and erythema. NERVOUS SYSTEM: Higher functions as mentioned earlier. Moves all 4 limbs. No focal motor or sensory deficit. LYMPHATICS: No lymph node palpable in neck, axillae or groin. SKIN: As mentioned earlier. NAUSEA JOINTS: No active deforming arthropathy. LABS: CBC within normal limits. INR is 1. BUN is 19, creatinine 0.63. AST is 54. ASSESSMENT: 1. Bilateral leg cellulitis, left more than the right, with failure of outpatient treatment, with surrounding cellulitis. 2. Increased AST. 3. Rule out osteomyelitis. 4. Hypertension. 5. History of degenerative joint disease. 6. History of rheumatoid arthritis with deformities. 7. History of breast cancer with double mastectomy. 8. History of colon cancer with surgery. 9. History of urinary tract infections. 10.History of methicillin-resistant Staphylococcus aeruginosa. 11.History of degenerative joint disease and knee replacements. RECOMMENDATIONS AND DISCUSSION: In this 79-year-old woman who presented with multiple complex medical issues, at this time I recommend to continue the current medications, continue with symptomatic treatment. Will initiate broad-spectrum IV antibiotics in the form of Zosyn and vancomycin. Obtain cultures. Otherwise, obtain infectious disease consultation and consultation with Vascular Surgery, Dr. Rivera. The prognosis is guarded because of multiple complex medical issues. Further recommendations to follow. A copy of this dictation is being forwarded to Dr. Abreu, who is the primary physician. Home medication reconciliation was also done. Symptomatic treatment also will be provided. Further recommendations to follow. MMODL / IJN: [id number] /
[2019-10-30] MEDS: METOPROLOL TARTRATE 50 MG TAB PO SCH (20:23)
[2019-10-30] MEDS: IBUPROFEN 200 MG TAB PO SCH (20:23)
[2019-10-30] MEDS: HEPARIN SODIUM,PORCINE 5,000 UNIT/ML 1 ML VIAL SQ SCH (20:24)
[2019-10-30 22:36] LABS: Appearance,Urine Clear (Clear); Bilirubin,Urine Negative (Negative); Blood,Urine Negative (Negative); Color,Urine Light Yellow; Glucose,Urine (UA) Negative (Negative); Ketones,Urine Negative (Negative); Leukocyte Esterase,Urine Negative (Negative); Nitrite,Urine Negative (Negative); PH, Urine 7.5 (5.0-8.0); Protein,Urine Negative (Negative); Specific Gravity,Urine 1.008 (1.001-1.035); Urobilinogen,Urine <2.0 mg/dL (<2.0)
[2019-10-31] MEDS: PIPERACILLIN-TAZOBACTAM 3.375 GM in SODIUM CHLORIDE 0.9% 100 ML IVPB SCH ×2 (00:43→09:13)
[2019-10-31] MEDS ORDERED: VANCOMYCIN 1,000 MG in SODIUM CHLORIDE 0.9% 250 ML IVPB SCH ×2 (06:00→17:00)
[2019-10-31] MEDS ORDERED: IBUPROFEN 200 MG TAB PO SCH (07:00)
[2019-10-31] MEDS ORDERED: METOPROLOL TARTRATE 50 MG TAB PO SCH (07:00)
[2019-10-31] MEDS ORDERED: CITRACAL PETITES PO SCH (07:00)
[2019-10-31] MEDS: HEPARIN SODIUM,PORCINE 5,000 UNIT/ML 1 ML VIAL SQ SCH ×2 (09:11→19:47)
[2019-10-31] MEDS: IBUPROFEN 200 MG TAB PO SCH (09:11)
[2019-10-31] MEDS: METOPROLOL TARTRATE 50 MG TAB PO SCH ×2 (09:12→17:51)
[2019-10-31] MEDS: PANTOPRAZOLE 40 MG TABLET PO SCH (09:12)
[2019-10-31] MEDS: ANASTROZOLE 1 MG TAB PO SCH (09:12)
[2019-10-31] MEDS: LACTOBACILLUS ACIDOPH & BULGAR 1 EACH PACKET PO SCH (09:12)
[2019-10-31] MEDS: amLODIPine 10 MG TAB PO SCH (09:12)
[2019-10-31] MEDS: COLLAGENASE 250 UNIT/GM OINTMENT 30 GM TUBE TOPICAL SCH (09:13)
[2019-10-31 09:17] LABS: Basophils % (A) 0 %; Eosinophils # (A) 0.2 k/uL (0-0.7); Eosinophils % (A) 6 %; HCT 38.2 % (34.0-46.0); HGB 12.3 gm/dL (11.4-16.0); Lymphocytes # (A) 0.5 k/uL (1.0-4.8); Lymphocytes % (A) 14 %; MCH 26.7 pg (25.0-35.0); MCHC 32.2 g/dL (31.0-37.0); Mean Platelet Volume 7.9; Monocytes # (A) 0.1 k/uL (0-1.0); Monocytes % (A) 3 %; Neutrophils # (A) 2.9 k/uL (1.3-7.7); Neutrophils % (A) 75 %; Platelet Count 163 k/uL (150-450); RDW 13.4 % (11.5-15.5); WBC 3.8 k/uL (3.8-10.6)
[2019-10-31 09:31] LABS: African American GFR (CKD) >90 (>60 ml/min/1.73 sqM); Anion Gap 9 mmol/L; Blood Urea Nitrogen 14 mg/dL (7-17); Calcium 8.9 mg/dL (8.4-10.2); Carbon Dioxide 24 mmol/L (22-30); Chloride 106 mmol/L (98-107); Glucose 110 mg/dL (74-99); Non-African American GFR(CKD) >90 (>60 ml/min/1.73 sqM); Potassium 4.3 mmol/L (3.5-5.1); Sodium 139 mmol/L (137-145)
--- NOTE | 2019-10-31 09:32 | P.CONS ---
History of Present Illness - Reason for Consult Consult date: 10/31/19 Wound care - History of Present Illness This is a 79-year-old pleasant female who is known to the wound care center being seen on for a nonhealing ulceration to the dorsal foot. Patient had a positive culture that was treated with oral antibiotics however the ulceration continues to worsen becoming larger with increased drainage and maceration noticed around the periwound. Patient states that it has had increased odor. Patient has medical history includes breast CA with a double mastectomy, colon CA, osteoarthritis, rheumatoid arthritis, hypertension. Review of Systems Review Of Systems: Constitutional: No fever, no chills, no night sweats. No weight change. No weakness, fatigue or lethargy. No daytime sleepiness. Integumentary:reports wounds, no lesions. No rash or pruritus. No unusual bruising. No change in hair or nails. Past Medical History Past Medical History: Cancer, Hypertension, Osteoarthritis (OA), Rheumatoid Arthritis (RA) Additional Past Medical History / Comment(s): arthralgia,HX BREAST CA 2012 double mastectomy and 33 TX RADIATION treatments ,COLON CA 2012 with surgery, UTIs, chronic bilateral foot wounds History of Any Multi-Drug Resistant Organisms: MRSA Year Discovered:: 09/16/19 MDRO Source:: FOOT LT Past Surgical History: Bowel Resection, Breast Surgery, Hysterectomy, Joint Replacement Additional Past Surgical History / Comment(s): 06/20/16 Total R knee arthroplasty. Other surgical hx: tumor removed from colon, double mastectomy, colonoscopy / RT KNEE REPLACEMENT apr 2016 Past Anesthesia/Blood Transfusion Reactions: No Reported Reaction Additional Past Anesthesia/Blood Transfusion Reaction / Comm: no previous blood transfusion Past Psychological History: No Psychological Hx Reported Additional Psychological History / Comment(s): Pt resides alone. She uses no devices. She does not drive-family take her to [employer]. Smoking Status: Never smoker Past Alcohol Use History: None Reported Past Drug Use History: None Reported - Past Family History Mother Additional Family Medical History / Comment(s): AGE 91 W/ PNEUMONIA Father Family Medical History: Rheumatoid Arthritis (RA) Additional Family Medical History / Comment(s): AT AGE 91 Brother(s) Family Medical History: Cancer Additional Family Medical History / Comment(s): LUNG CA #1 BROTHER AT AGE 46,#2 BROTHER AT AGE 63 Medications and Allergies Home Medications Medication Instructions Recorded Confirmed Type Anastrozole [Arimidex] 1 mg PO DAILY@0700 03/05/14 10/30/19 History Metoprolol Tartrate [Lopressor] 50 mg PO BID@0700,18303/05/14 10/30/19 History amLODIPine BESYLATE [Norvasc] 10 mg PO DAILY@0700 03/05/14 10/30/19 History Citracal Petites 2 tab PO BID@0700,182911/02/16 10/30/19 History Ibuprofen [Advil] 200 mg PO BID@0700,18301/29/18 10/30/19 History Entecavir 0.5 mg PO DAILY@0530 10/30/19 10/30/19 History L.acidoph,Paracasei, B.lactis 1 cap PO DAILY@0700 10/30/19 10/30/19 History [Probiotic] Levofloxacin [Levaquin] 500 mg PO DAILY 10/30/19 10/30/19 History Allergies Allergy/AdvReac Type Severity Reaction Status Date / Time clindamycin Allergy Rash/Hives Verified 10/30/19 18:16 Iodinated Contrast Media Allergy "UNSURE OF Verified 10/30/19 18:16 [Iodinated Contrast Media - ALG BUT IV Dye] PASSED OUT W/ VOMITING" propoxyphene napsylate Allergy Unknown Verified 10/30/19 18:16 [From [facility]] Physical Exam Vitals: Vital Signs Temp Pulse Pulse Resp BP BP Pulse Ox 10/31/19 07:35 95 10/31/19 06:04 98.1 F 65 18 119/62 95 10/30/19 20:53 98.2 F 76 16 143/64 98 10/30/19 18:22 97.9 F 90 18 147/78 97 10/30/19 18:19 97.9 F 90 18 147/78 97 10/30/19 16:46 80 18 120/72 98 10/30/19 12:43 97.8 F 78 18 118/69 98 Intake and Output 10/30/19 10/31/19 10/31/19 22:59 06:59 14:59 Other: # Voids 1 1 Weight 54.431 kg Physical exam: General Appearance: Alert, cooperative, no distress, appears stated age. Skin: Right lateral lower leg venous leg ulcer measuring approximately 0.9 x 0.6 x 0.2 cm small amount of serous drainage has distinct margins and minimal granulation noted in the wound bed. With significant amount of slough. Left lateral lower extremity venous leg ulcer measuring approximately 4.3 x 2.2 x 0.3 cm with fatty layer exposure no tunneling or undermining. Of moderate amount of serosanguineous drainage. There is granulation seen within the room bed and slough and nonviable tissue. Left dorsal foot with fatty layer exposure that are Lopressor 1.9 x 1.7 x 1 cm with fatty layer exposure, no tunneling or undermining noted. Significant amount of drainage noted. Minimal granulation wound beds shows significant Slough and nonviable tissue. all other Skin color, texture, tugor normal, no rashes or lesions. Neurologic: Alert oriented x3 Results CBC & Chem 7: 10/31/19 08:52 10/30/19 13:15 Labs: Abnormal Lab Results - Last 24 Hours (Table) 10/30/19 10/30/19 10/31/19 Range/Units 13:15 13:15 08:52 Lymphocytes # 0.7 L 0.5 L (1.0-4.8) k/uL BUN 19 H (7-17) mg/dL AST 54 H (14-36) U/L Assessment and Plan (1) Non-pressure chronic ulcer of right lower leg with fat layer exposed Current Visit: Yes Status: Acute Code(s): L97.912 - NON-PRS CHR ULC UNSP PRT OF R LOW LEG W FAT LAYER EXPOSED SNOMED Code(s): 03126724 (2) Non-pressure chronic ulcer of left lower leg with fat layer exposed Current Visit: Yes Status: Acute Code(s): L97.922 - NON-PRS CHR ULC UNSP PRT OF L LOW LEG W FAT LAYER EXPOSED SNOMED Code(s): 77774560 (3) Non-pressure chronic ulcer of other part of left lower leg with fat layer exposed Current Visit: Yes Status: Acute Code(s): L97.822 - NON-PRS CHRONIC ULCER OTH PRT L LOW LEG W FAT LAYER EXPOSED SNOMED Code(s): 84762986 (4) Wound infection Current Visit: Yes Status: Acute Code(s): T14.8XXA - OTHER INJURY OF UNSPECIFIED BODY REGION, INITIAL ENCOUNTER; L08.9 - LOCAL INFECTION OF THE SKIN AND SUBCUTANEOUS TISSUE, UNSP SNOMED Code(s): 46465342 Plan: Apply Santyl to bilateral lateral ulcerations. Saline moistened gauze, dry g auze, rolled gauze and paper tape to secure. Change daily. Left dorsal foot apply absorptive silver dry, dry gauze rolled gauze and secure with paper tape. Patient will be scheduled for a PICC line for IV antibiotics. Patient has a current culture which was taken 10/14/2019 which showed diphtheria, alpha hemolytic streptococcus. MRI with and without contrast of left foot ordered. Patient to continue with wound care in the wound care center upon discharge. Thank you for the consultation. Any questions please contact the wound care center DNP note has been reviewed and discussed with Dr. Rivera and the impression and plan of care has been directed as dictated.
--- NOTE | 2019-10-31 11:52 | MR ---
EXAMINATION TYPE: MR foot LT wo/w con DATE OF EXAM: 10/31/2019 COMPARISON: X-ray 10/30/2019 HISTORY: Left anterior mid foot wound, left lateral ankle wound CONTRAST: Standard multiplanar, multisequence MRI departmental protocol utilizing 5.5 mL intravenous Gadavist g adolinium contrast. FINDINGS: There is diffuse osteopenia and severe arthropathy of the MTP, PIP and DIP joints. Arthropathy of the tarsal metatarsal junction is noted. Diffuse soft tissue edema overlying the dorsum of foot with skin thickening correlate for cellulitis. There is erosive change involving the head of the fifth metatarsal. This likely is chronic rather fabienne n related to osteomyelitis. The visualized ligamentous and tendinous structures are intact. No evidence of marrow edema. No pathologic enhancement. Appears to be a soft tissue wound overlying t he dorsum of foot adjacent to the he of the fifth and fourth metatarsals. IMPRESSION: Diffuse soft tissue edema with suspected dorsal foot skin ulceration. No diagnostic evidence of enhan cement or abnormal marrow signal to suggest osteomyelitis. Diffuse arthropathy.
[2019-10-31] MEDS: MULTIVITAMINS, THERA 1 EACH TAB PO SCH (12:22)
[2019-10-31] MEDS: IBUPROFEN 400 MG TAB PO PRN ×2 (12:22→22:54)
[2019-10-31] MEDS ORDERED: LIDOCAINE 1% INJ 10MG/ML (20 ML MDV) ONE (13:30)
[2019-10-31] MEDS ORDERED: LIDOCAINE 1% INJ 10MG/ML (20 ML MDV) SQ ONE (13:50)
--- NOTE | 2019-10-31 14:30 | IR ---
PICC LINE PLACEMENT: HISTORY: Infection requiring long-term antibiotic therapy PROCEDURE: Ultrasound and fluoroscopic guidance of PICC line placement. COMPLICATIONS: None ANESTHESIA: 1. 1% Lidocaine locally. FINDINGS/TECHNIQUE: The procedure was explained to the patient. The risks, complications, benefits and alternatives were discussed and any questions were answered. Informed consent was obtained. The patient was placed supine on the fluoroscopic table and prepped and draped in the usual sterile fash ion. Utilizing a 21 gauge needle and sonographic and fluoroscopic guidance, access in the right bas ilic vein was achieved and there is placement of a 0.018 guidewire. The vein is patent. A 4-F sheat h was placed over the guidewire. The guidewire and dilator were removed and a 4-F. PICC line was mercedes brittany through the sheath with the tip at the level of the SVC. The sheath was removed, the catheter wa s flushed and sutured into position. The patient was stable throughout the procedure and remained st able upon discharge from the Department of Radiology. The vein puncture was patent under ultrasound. A maurice scale image was obtained to document patency of the vein punctured. All elements of the maximal barrier technique were utilized. FLUOROSCOPY TIME: 0.4 minutes, one image submitted IMPRESSION: Successful PICC line placement under ultrasound and fluoroscopic guidance.
--- NOTE | 2019-10-31 14:44 | P.PN ---
Subjective Progress Note Date: 10/31/19 Principal diagnosis: This is a 79-year-old female who was recently admitted for bilateral foot wounds and is being closely monitored. Patient has been undergoing wound care with Dr. Rivera at the wound clinic with any lack of improvement. Wound care and infectious disease are following. Patient underwent MRI of the left foot today showing diffuse soft tissue edema with suspected dorsal foot skin ulcerations and no diagnostic evidence or abnormal marrow signal to suggest osteomyelitis. Given patient's extensive history of these wounds with no real signs of improvement patient will likely be receiving a PICC line today for long-term IV antibiotic therapy. Case management and social work are following for placement at [facility] on the [place] for continued IV antibiotic therapy in the outpatient setting. Currently no reports of chest pain, shortness of breath, or palpi tations. Patient is afebrile. No reports of nausea or vomiting and patient is tolerating diet. Objective - Vital Signs Vital signs: Vital Signs Temp 97.7 F 10/31/19 13:00 Pulse 65 10/31/19 13:00 Resp 24 10/31/19 13:00 BP 150/70 10/31/19 13:00 Pulse Ox 96 10/31/19 13:00 Intake & Output 10/30/19 10/31/19 10/31/19 18:59 06:59 18:59 Intake Total 780 Balance 780 Weight 54.431 kg Intake: Oral 780 Other: Voiding Method Toilet # Voids 1 2 - Exam Gen: This is a 79-year-old female sitting up in the chair, awake, alert and oriented 3, well-developed, well-nourished. Temp is 97.7F, pulse is 65, respirations is 24, blood pressure is 150/70, oxygen saturation is 96% on room air. HEENT: Head is atraumatic, normocephalic. Pupils equal, round. Sclerae is anicteric. NECK: Supple. No JVD. No lymphadenopathy. No thyromegaly. LUNGS: Respiratory system shows diminished breath sounds at the bases with no wheezing or rhonchi noted. No intercostal retractions. HEART: S1, S2 are muffled ABDOMEN: Soft. Bowel sounds are present. No masses. No tenderness. EXTREMITIES: No pedal edema. No calf tenderness. Bilateral feet have recently been dressed and treated this morning by the wound care nurse practitioner. Bilateral leg cellulitis along with multiple ulcerations, especially in the left heel as well as the left dorsum of the foot is present. Surrounding cellulitis and erythema slightly improved. Kerlex dressing noted as mentioned previously NEUROLOGICAL: Patient is awake, alert and oriented x3. Cranial nerves 2 through 12 are grossly intact. - Labs CBC & Chem 7: 10/31/19 08:52 10/31/19 08:52 Labs: Abnormal Lab Results - Last 24 Hours (Table) 10/30/19 10/31/19 10/31/19 Range/Units 13:15 08:52 08:52 Lymphocytes # 0.5 L (1.0-4.8) k/uL BUN 19 H (7-17) mg/dL Glucose 110 H (74-99) mg/dL AST 54 H (14-36) U/L Assessment and Plan Assessment: Bilateral leg cellulitis, left more than the right, with failure of outpatient treatment, with surrounding cellulitis Increased AST Rule out osteomyelitis Hypertension History of degenerative joint disease History of rheumatoid arthritis with deformities History of breast cancer with double mastectomy History of colon cancer surgery History of urinary tract infections History of methicillin-resistant Staphylococcus aeruginosa History degenerative joint disease and knee replacements DVT prophylaxis GI prophylaxis Recommendations and discussion: Recommend to continue current medications, management, and symptomatic treatment. To continue with wound care and IV antibiotics in the form of Zosyn and vancomycin. Infectious disease is following. Patient underwent MRI of the left foot as mentioned previously showing no signs of osteomyelitis. Patient is to receive a PICC line for long-term IV antibiotic therapy. Case management and social work following for possible placement at [facility] on the [place] for continued IV antibiotic therapy. Patient will be requiring a 3 night stay for continued wound care and IV antibiotics. Due to multiple complex medical issues prognosis is guarded. Further recommendations to follow. Will continue to monitor closely.
[2019-10-31] MEDS: AMPICILLIN-SULBACTAM 3 GM in SODIUM CHLORIDE 0.9% 100 ML IVPB SCH ×2 (17:51→22:54)
[2019-10-31] MEDS: VANCOMYCIN 1,000 MG in SODIUM CHLORIDE 0.9% 250 ML IVPB SCH (19:48)
[2019-11-01] MEDS: IBUPROFEN 400 MG TAB PO PRN ×2 (00:39→10:32)
[2019-11-01] MEDS: AMPICILLIN-SULBACTAM 3 GM in SODIUM CHLORIDE 0.9% 100 ML IVPB SCH ×4 (05:18→23:10)
[2019-11-01] MEDS: amLODIPine 10 MG TAB PO SCH (06:03)
[2019-11-01] MEDS: LACTOBACILLUS ACIDOPH & BULGAR 1 EACH PACKET PO SCH (06:03)
[2019-11-01] MEDS: METOPROLOL TARTRATE 50 MG TAB PO SCH ×2 (06:03→17:17)
[2019-11-01] MEDS: VANCOMYCIN 1,000 MG in SODIUM CHLORIDE 0.9% 250 ML IVPB SCH ×2 (06:04→18:23)
--- NOTE | 2019-11-01 08:46 | P.CONS ---
History of Present Illness - Reason for Consult Consult date: 10/31/19 left foot wound and cellulitis Requesting physician: Fred Galindo - Chief Complaint non healing wounds to left foot and pain x weeks - History of Present Illness Patient is a 79-year female past medical history significant for rheumatoid arthritis and peripheral vascular disease commended physician who did have a chronic nonhealing wound to the left foot area for the patient has been treated at [facility] wound care grady for last couple of months patient francesca cameron was evaluated in the wound care center with concern for nonhealing of these wounds and underlying cellulitis and a question of osteomyelitis she has been advised to go to the hospital for admission and IV antibiotic therapy patient mentioning she has these wounds for couple of months now and has been treated with different modalities patient noticed recent worsening of the wound on her left foot dorsum area that has been becoming more swollen red and painful described the pain to be throbbing intensity 5-6 out of 10 and no radiation she also have a wound on her left ankle area for the same duration the no clear history of any trauma patient denies high-grade fever Reiger's or chills on arrival to the ER the patient did have x-rays of the foot which shows no convincing radiographic evidence of acute osteomyelitis subsequently the patient did have MRI of the left foot completed this morning we did shows evidence of cellulitis but no osteomyelitis patient has been treated with vancomycin and Zosyn infectious was consulted for further recommendation regarding antibiotic therapy she did have blood cultures drawn which are currently pending and no local culture has been done this admission. Review of Systems Positive point has been mentioned in HPI rest of the systems are negative Past Medical History Past Medical History: Cancer, Hypertension, Osteoarthritis (OA), Rheumatoid Arthritis (RA) Additional Past Medical History / Comment(s): arthralgia,HX BREAST CA 2012 double mastectomy and 33 TX RADIATION treatments ,COLON CA 2012 with surgery, UTIs, chronic bilateral foot wounds History of Any Multi-Drug Resistant Organisms: MRSA Year Discovered:: 09/16/19 MDRO Source:: FOOT LT Past Surgical History: Bowel Resection, Breast Surgery, Hysterectomy, Joint Replacement Additional Past Surgical History / Comment(s): 06/20/16 Total R knee arthroplasty. Other surgical hx: tumor removed from colon, double mastectomy, colonoscopy / RT KNEE REPLACEMENT apr 2016 Past Anesthesia/Blood Transfusion Reactions: No Reported Reaction Additional Past Anesthesia/Blood Transfusion Reaction / Comm: no previous blood transfusion Past Psychological History: No Psychological Hx Reported Additional Psychological History / Comment(s): Pt resides alone. She uses no d evices. She does not drive-family take her to [employer]. Smoking Status: Never smoker Past Alcohol Use History: None Reported Past Drug Use History: None Reported - Past Family History Mother Additional Family Medical History / Comment(s): AGE 91 W/ PNEUMONIA Father Family Medical History: Rheumatoid Arthritis (RA) Additional Family Medical History / Comment(s): AT AGE 91 Brother(s) Family Medical History: Cancer Additional Family Medical History / Comment(s): LUNG CA #1 BROTHER AT AGE 46,#2 BROTHER AT AGE 63 Medications and Allergies Home Medications Medication Instructions Recorded Confirmed Type Anastrozole [Arimidex] 1 mg PO DAILY@0700 03/05/14 10/30/19 History Metoprolol Tartrate [Lopressor] 50 mg PO BID@0700,1830 03/05/14 10/30/19 History amLODIPine BESYLATE [Norvasc] 10 mg PO DAILY@0700 03/05/14 10/30/19 History Citracal Petites 2 tab PO BID@0700,1830 11/02/16 10/30/19 History Ibuprofen [Advil] 200 mg PO BID@0700,1830 01/29/18 10/30/19 History Entecavir 0.5 mg PO DAILY@0530 10/30/19 10/30/19 History L.acidoph,Paracasei, B.lactis 1 cap PO DAILY@0700 10/30/19 10/30/19 History [Probiotic] Levofloxacin [Levaquin] 500 mg PO DAILY 10/30/19 10/30/19 History Allergies Allergy/AdvReac Type Severity Reaction Status Date / Time clindamycin Allergy Rash/Hives Verified 10/30/19 18:16 Iodinated Contrast Media Allergy "UNSURE OF Verified 10/30/19 18:16 [Iodinated Contrast Media - ALG BUT IV Dye] PASSED OUT W/ VOMITING" propoxyphene napsylate Allergy Unknown Verified 10/30/19 18:16 [From Darvocet-N 100] Physical Exam Vitals: Vital Signs Temp Pulse Pulse Resp BP BP Pulse Ox 10/31/19 09:00 18 10/31/19 07:35 95 03/05/20 06:04 98.1 F 65 18 119/62 95 10/30/19 20:53 98.2 F 76 16 143/64 98 10/30/19 18:22 97.9 F 90 18 147/78 97 10/30/19 18:19 97.9 F 90 18 147/78 97 10/30/19 16:46 80 18 120/72 98 Intake and Output 10/30/19 10/31/19 10/31/19 22:59 06:59 14:59 Intake Total 240 Balance 240 Intake: Oral 240 Other: Voiding Method Toilet # Voids 1 1 Weight 54.431 kg GENERAL DESCRIPTION: Elderly female up in the chair, no distress. No tachypnea or accessory muscle of respiration use. HEENT: Shows Pallor , no scleral icterus. Oral mucous membrane is dry. NECK: Trachea central, no thyromegaly. LUNGS: Unlabored breathing. Clear to auscultation anteriorly. No wheeze or crackle. HEART: S1, S2, regular rate and rhythm. ABDOMEN: Soft, no tenderness , guarding or rigidity EXTREMITIES: Left foot dorsum did have a wound with some slough tissue some redness and her pressure purulent material came out which was culture she did have ulceration to the left lateral ankle area with no significant slough tissue minimal surrounding swelling redness and no foul-smelling drainage sKIN: No rash, no masses palpable. NEUROLOGICAL: The patient is awake, alert, oriented x3, mood and affect normal. Results CBC & Chem 7: 10/31/19 08:52 10/31/19 08:52 Labs: Abnormal Lab Results - Last 24 Hours (Table) 10/30/19 10/30/19 10/31/19 Range/Units 13:15 13:15 08:52 Lymphocytes # 0.7 L (1.0-4.8) k/uL BUN 19 H (7-17) mg/dL Glucose 110 H (74-99) mg/dL AST 54 H (14-36) U/L 10/31/19 Range/Units 08:52 Lymphocytes # 0.5 L (1.0-4.8) k/uL BUN (7-17) mg/dL Glucose (74-99) mg/dL AST (14-36) U/L Assessment and Plan Assessment: patient presenting to the hospital for chronic nonhealing wound to the left foot and heel area which has been there for a couple of months now in this patient who did have history of rheumatoid arthritis and also underlying PAD recent cultures done in September did shows alphahemolytic Streptococcus and anaerobic gram-negative bacilli however it is not very clear if he has received antibiotic for the same also she has cultures done in August which was positive for MRSA will need to cover for this pathogen while waiting for the culture was done today to be finalized and recommend discharge antibiotic therapy. (1) Cellulitis of left foot Current Visit: Yes Status: Acute Code(s): L03.116 - CELLULITIS OF LEFT LOWER LIMB SNOMED Code(s): 035145407 (2) Non-pressure chronic ulcer of left lower leg with fat layer exposed Current Visit: Yes Status: Acute Code(s): L97.922 - NON-PRS CHR ULC UNSP PRT OF L LOW LEG W FAT LAYER EXPOSED SNOMED Code(s): 38235205 (3) Wound infection Current Visit: Yes Status: Acute Code(s): T14.8XXA - OTHER INJURY OF UNSPECIFIED BODY REGION, INITIAL ENCOUNTER; L08.9 - LOCAL INFECTION OF THE SKIN AND SUBCUTANEOUS TISSUE, UNSP SNOMED Code(s): 05473263 Plan: 1-vancomycin pharmacy to dose her with a target trough of 15 while watching her kidney function and Vanco trough closely. 2-discontinue Zosyn to decrease risk of nephrotoxicity and add Unasyn 3 g every 6 hours 3-local wound care to the left foot and ankle wound care with dry Aquacel silver dressing to be changed daily We will follow on clinical condition and cultures to further adjust medication i f needed Thank you for this consultation we will follow the patient along with you Time with Patient: Greater than 30
[2019-11-01 09:29] LABS: Basophils % (A) 0 %; Eosinophils # (A) 0.2 k/uL (0-0.7); Eosinophils % (A) 6 %; HCT 37.2 % (34.0-46.0); HGB 11.9 gm/dL (11.4-16.0); Lymphocytes # (A) 0.5 k/uL (1.0-4.8); Lymphocytes % (A) 14 %; MCH 26.7 pg (25.0-35.0); MCHC 31.9 g/dL (31.0-37.0); MCV 83.7 fL (80.0-100.0); Mean Platelet Volume 8.3; Monocytes # (A) 0.1 k/uL (0-1.0); Monocytes % (A) 3 %; Neutrophils # (A) 2.9 k/uL (1.3-7.7); Neutrophils % (A) 76 %; Platelet Count 168 k/uL (150-450); RBC 4.44 m/uL (3.80-5.40); RDW 13.6 % (11.5-15.5); WBC 3.8 k/uL (3.8-10.6)
[2019-11-01 09:41] LABS: African American GFR (CKD) >90 (>60 ml/min/1.73 sqM); Anion Gap 7 mmol/L; Blood Urea Nitrogen 12 mg/dL (7-17); Calcium 8.6 mg/dL (8.4-10.2); Carbon Dioxide 26 mmol/L (22-30); Chloride 106 mmol/L (98-107); Glucose 117 mg/dL (74-99); Non-African American GFR(CKD) >90 (>60 ml/min/1.73 sqM); Potassium 4.3 mmol/L (3.5-5.1); Sodium 139 mmol/L (137-145)
[2019-11-01] MEDS: PANTOPRAZOLE 40 MG TABLET PO SCH (10:28)
[2019-11-01] MEDS: COLLAGENASE 250 UNIT/GM OINTMENT 30 GM TUBE TOPICAL SCH (10:28)
[2019-11-01] MEDS: ANASTROZOLE 1 MG TAB PO SCH (10:28)
[2019-11-01] MEDS: HEPARIN SODIUM,PORCINE 5,000 UNIT/ML 1 ML VIAL SQ SCH ×2 (10:28→20:08)
[2019-11-01 11:28] VITALS: BMI 21.2
[2019-11-01] MEDS: MULTIVITAMINS, THERA 1 EACH TAB PO SCH (13:43)
--- NOTE | 2019-11-01 15:20 | P.PN ---
Subjective Progress Note Date: 11/01/19 Principal diagnosis: This is a 79-year-old female who was recently admitted for bilateral foot wounds and is being closely monitored. Patient has been undergoing wound care with Dr. Rivera at the wound clinic with any lack of improvement. Wound care and infectious disease are following. Patient underwent MRI of the left foot today showing diffuse soft tissue edema with suspected dorsal foot skin ulcerations and no diagnostic evidence or abnormal marrow signal to suggest osteomyelitis. Given patient's extensive history of these wounds with no real signs of improvement patient will likely be receiving a PICC line today for long-term IV antibiotic therapy. Case management and social work are following for placement at [facility] [place] for continued IV antibiotic therapy in the outpatient setting. Currently no reports of chest pain, shortness of breath, or palpi tations. Patient is afebrile. No reports of nausea or vomiting and patient is tolerating diet. 11/01/2019 Patient is seen and evaluated in follow-up today and currently being treated for bilateral foot wounds and is maintained on IV antibiotics in the form of Unasyn and vancomycin and will continue at this time. Infectious disease and wound care are following. Patient will continue with IV antibiotics in the outpatient setting and patient received a PICC line in the right upper extremity yesterday. Currently no reports of chest pain, shortness of breath, or palpitations. Patient is afebrile. No reports of nausea or vomiting and patient is tolerating diet. Patient to continue with daily dressing changes. Repeat labs reviewed today and are within normal limits. Current creatinine is 0.48. Will continue to monitor closely. Objective - Vital Signs Vital signs: Vital Signs Temp 98 F 11/01/19 13:10 Pulse 73 11/01/19 13:10 Resp 20 11/01/19 13:10 BP 146/74 11/01/19 13:10 Pulse Ox 98 11/01/19 13:10 Intake & Output 10/31/19 11/01/19 11/01/19 18:59 06:59 18:59 Intake Total 780 1180 120 Balance 780 1180 120 Weight 54.431 kg Intake: Oral 780 1180 120 Other: Voiding Method Toilet # Voids 2 4 4 - Exam Gen: This is a 79-year-old female sitting up in the chair, awake, alert and oriented 3, well-developed, well-nourished. Temp is 98.4F, pulse is 73, respirations is 20, blood pressure is 146/74, oxygen saturation is 98 % on room air. HEENT: Head is atraumatic, normocephalic. Pupils equal, round. Sclerae is anicte andre. NECK: Supple. No JVD. No lymphadenopathy. No thyromegaly. LUNGS: Respiratory system shows diminished breath sounds at the bases with no wheezing or rhonchi noted. No intercostal retractions. HEART: S1, S2 are muffled ABDOMEN: Soft. Bowel sounds are present. No masses. No tenderness. EXTREMITIES: No pedal edema. No calf tenderness. Bilateral feet have recently been dressed and treated. Bilateral lower extremities are elevated up on a pillow at this time. Bilateral leg cellulitis along with multiple ulcerations, especially in the left heel as well as the left dorsum of the foot is present. Surrounding cellulitis and erythema slightly improved. Kerlex dressing noted as mentioned previously NEUROLOGICAL: Patient is awake, alert and oriented x3. Cranial nerves 2 through 12 are grossly intact. - Labs CBC & Chem 7: 11/01/19 08:32 11/01/19 08:32 Labs: Abnormal Lab Results - Last 24 Hours (Table) 11/01/19 11/01/19 Range/Units 08:32 08:32 Lymphocytes # 0.5 L (1.0-4.8) k/uL Creatinine 0.48 L (0.52-1.04) mg/dL Glucose 117 H (74-99) mg/dL Microbiology - Last 24 Hours (Table) 10/31/19 11:40 Gram Stain - Preliminary Foot - Left Wound Culture - Preliminary 10/30/19 14:13 Blood Culture - Preliminary Blood No Growth after 24 hours Assessment and Plan Assessment: Bilateral leg cellulitis, left more than the right, with failure of outpatient treatment, with surrounding cellulitis Increased AST Ruled out osteomyelitis as noted on MRI Hypertension History of degenerative joint disease History of rheumatoid arthritis with deformities History of breast cancer with double mastectomy History of colon cancer surgery History of urinary tract infections History of methicillin-resistant Staphylococcus aeruginosa History degenerative joint disease and knee replacements DVT prophylaxis GI prophylaxis Recommendations and discussion: Recommend to continue current medications, management, and symptomatic treatment. To continue with wound care and IV antibiotics in the form of Zosyn and vancomycin. Infectious disease is following. Patient received a PICC line yesterday for outpatient continued IV antibiotic therapy. Case management and social work following for possible placement at [facility] [place] for continued IV antibiotic therapy. Patient to continue with activity as tolerated. PT/OT following. Due to multiple complex medical issues prognosis is guarded. Further recommendations to follow. Will continue to monitor closely. Possible discharge in 24-48 hours.
[2019-11-01] MEDS ORDERED: VANCOMYCIN TROUGH DUE 1 EACH MISC MISCELLANE ONE (18:00)
--- NOTE | 2019-11-01 19:15 | PN ---
PROGRESS NOTE DATE OF SERVICE: 11/01/2019. REASON FOR FOLLOWUP: Left foot wound and cellulitis. INTERVAL HISTORY: The patient is currently afebrile. She has been breathing comfortably. Pain to the left foot is currently controlled though she did mention the pain earlier while dressing was being changed. No chest pain, shortness of breath or cough. No abdominal pain. No diarrhea. PHYSICAL EXAMINATION: Blood pressure 146/74 with a pulse of 73, temperature of 98. She is 98% on room air. General description is an elderly female up in the chair in no distress. Respiratory system: Unlabored breathing. Clear to auscultation anteriorly. Heart is S1, S2. Regular rate and rhythm. Abdomen soft, no tenderness. Left foot is currently dressed up. No obvious drainage on the dressing. LABS: Hemoglobin is 11.8, white count 3.8, creatinine 0.48. Wound cultures currently pending. DIAGNOSTIC IMPRESSION AND PLAN: Patient with left foot chronic nonhealing wound with secondary cellulitis. We are waiting for the culture to finalize to determine discharge antibiotics. The patient is currently covered with vancomycin and Unasyn to continue. Local care as ordered. Continue supportive care. MMODL / IJN: [id number] /
[2019-11-01 22:28] VITALS: RESP 18
[2019-11-02] MEDS: IBUPROFEN 400 MG TAB PO PRN ×2 (01:13→14:11)
[2019-11-02] MEDS: AMPICILLIN-SULBACTAM 3 GM in SODIUM CHLORIDE 0.9% 100 ML IVPB SCH ×3 (05:46→17:20)
[2019-11-02] MEDS: VANCOMYCIN 1,000 MG in SODIUM CHLORIDE 0.9% 250 ML IVPB SCH ×2 (08:05→20:22)
[2019-11-02] MEDS: METOPROLOL TARTRATE 50 MG TAB PO SCH ×2 (08:05→17:20)
[2019-11-02] MEDS: PANTOPRAZOLE 40 MG TABLET PO SCH (08:05)
[2019-11-02] MEDS: LACTOBACILLUS ACIDOPH & BULGAR 1 EACH PACKET PO SCH (08:05)
[2019-11-02] MEDS: COLLAGENASE 250 UNIT/GM OINTMENT 30 GM TUBE TOPICAL SCH (08:06)
[2019-11-02] MEDS: HEPARIN SODIUM,PORCINE 5,000 UNIT/ML 1 ML VIAL SQ SCH ×2 (08:06→20:27)
[2019-11-02] MEDS: ANASTROZOLE 1 MG TAB PO SCH (08:06)
[2019-11-02] MEDS: amLODIPine 10 MG TAB PO SCH (08:06)
[2019-11-02 09:18] LABS: African American GFR (CKD) >90 (>60 ml/min/1.73 sqM); Anion Gap 8 mmol/L; Blood Urea Nitrogen 16 mg/dL (7-17); Calcium 8.8 mg/dL (8.4-10.2); Carbon Dioxide 25 mmol/L (22-30); Chloride 108 mmol/L (98-107); Glucose 79 mg/dL (74-99); Non-African American GFR(CKD) >90 (>60 ml/min/1.73 sqM); Potassium 3.8 mmol/L (3.5-5.1); Sodium 141 mmol/L (137-145)
[2019-11-02 09:22] LABS: Basophils % (A) 0 %; Eosinophils # (A) 0.3 k/uL (0-0.7); Eosinophils % (A) 7 %; HCT 38.2 % (34.0-46.0); HGB 12.6 gm/dL (11.4-16.0); Lymphocytes # (A) 0.6 k/uL (1.0-4.8); Lymphocytes % (A) 17 %; MCH 27.3 pg (25.0-35.0); MCHC 33.1 g/dL (31.0-37.0); MCV 82.4 fL (80.0-100.0); Mean Platelet Volume 8.7; Monocytes # (A) 0.1 k/uL (0-1.0); Monocytes % (A) 2 %; Neutrophils # (A) 2.5 k/uL (1.3-7.7); Neutrophils % (A) 71 %; Platelet Count 144 k/uL (150-450); RBC 4.63 m/uL (3.80-5.40); RDW 13.5 % (11.5-15.5); WBC 3.5 k/uL (3.8-10.6)
[2019-11-02] MEDS: MULTIVITAMINS, THERA 1 EACH TAB PO SCH (11:59)
--- NOTE | 2019-11-02 19:52 | PN ---
PROGRESS NOTE DATE OF SERVICE: 11/02/2019 This 79-year-old woman with a past medical history of multiple medical problems was admitted with significant bilateral leg cellulitis. The patient is on IV antibiotics. The cultures are negative so far. There is no evidence of osteomyelitis. PT and OT evaluated the patient. PICC line is inserted. ECF rehab is being planned. PHYSICAL EXAMINATION: Alert and oriented x3. Pulse is 72, blood pressure 130/70, respiration 18, temperature 97.9, pulse ox 98% on room air HEENT: Conjunctivae normal. Oral mucosa moist. NECK: No jugular venous distention. No lymph node enlargement. CARDIOVASCULAR: S1, S2. RESPIRATORY: Diminished breath sounds at the bases. No scattered rhonchi, no crackles. ABDOMEN: Soft, nontender. LEGS: Status post bilateral cellulitis, left more than the right. NERVOUS SYSTEM: No focal deficits. LABS: WBC 3.5, hemoglobin is 12.6. Vancomycin as noted. ASSESSMENT: 1. Bilateral leg cellulitis, left more than the right with failure of outpatient treatment surrounding cellulitis. 2. Increased AST. 3. Ruled out osteomyelitis as noted on MRI. 4. Hypertension. 5. History of degenerative joint disease. 6. History of rheumatoid arthritis deformities. 7. History of breast cancer with double mastectomy. 8. History of colon cancer surgery. 9. History of urinary tract infection. 10.History of MRSA. 11.History of degenerative joint disease and knee replacement. 12.DVT prophylaxis. 13.GI prophylaxis. RECOMMENDATIONS AND DISCUSSION: Recommend to continue current medications, continue to monitor, symptomatic treatment. Otherwise, at this time I recommend continue with antibiotics, PT/OT evaluation. Guarded prognosis. PICC line with antibiotics. Guarded prognosis. Further recommendations to follow. MMODL / IJN: [id number] /
[2019-11-03] MEDS: AMPICILLIN-SULBACTAM 3 GM in SODIUM CHLORIDE 0.9% 100 ML IVPB SCH ×5 (00:30→23:49)
[2019-11-03] MEDS: IBUPROFEN 400 MG TAB PO PRN ×2 (05:49→19:38)
[2019-11-03] MEDS: METOPROLOL TARTRATE 50 MG TAB PO SCH ×2 (06:03→16:06)
[2019-11-03] MEDS: LACTOBACILLUS ACIDOPH & BULGAR 1 EACH PACKET PO SCH (08:21)
[2019-11-03] MEDS: ANASTROZOLE 1 MG TAB PO SCH (08:22)
[2019-11-03] MEDS: amLODIPine 10 MG TAB PO SCH (08:22)
[2019-11-03] MEDS: PANTOPRAZOLE 40 MG TABLET PO SCH (08:22)
[2019-11-03] MEDS: HEPARIN SODIUM,PORCINE 5,000 UNIT/ML 1 ML VIAL SQ SCH ×2 (08:22→20:18)
[2019-11-03] MEDS: MULTIVITAMINS, THERA 1 EACH TAB PO SCH (08:22)
[2019-11-03] MEDS: COLLAGENASE 250 UNIT/GM OINTMENT 30 GM TUBE TOPICAL SCH (08:23)
--- NOTE | 2019-11-03 09:18 | PN ---
PROGRESS NOTE DATE OF SERVICE: 11/02/2019 REASON FOR FOLLOWUP: Left foot wound cellulitis. INTERVAL HISTORY: The patient is currently afebrile. Patient has been breathing comfortably. The patient denies having any chest pain. No shortness of breath or cough. No abdominal pain or any worsening pain to the left foot wound area. PHYSICAL EXAMINATION: Blood pressure 160/72 with a pulse of 68. Temperature is 97.7. She is 97% on room air. General description is an elderly female lying in bed in no distress. Respiratory system: Unlabored breathing. Clear to auscultation anteriorly. Heart S1, S2. Regular rate and rhythm. Abdomen soft. No tenderness. Left foot wound did have some slough tissue. The left lateral ankle wound base looks clean with no slough. Wound on the right lateral ankle area which is clean with no slough tissue. LABS: Hemoglobin is 12.7, white count 3.5, creatinine 0.47. Wound cultures have been finalized with skin bryn. DIAGNOSTIC IMPRESSION AND PLAN: Patient with left foot multiple wounds with secondary cellulitis. So far culture has been negative for any resistant pathogen. Patient is covered with Unasyn to continue. Discontinue vancomycin. Local wound care to the left foot wound with Santyl and to the left and right lateral ankle wounds with Aquacel Silver dressing. Questions and concerns were answered. MMODL / IJN: [id number] /
--- NOTE | 2019-11-03 21:06 | PN ---
PROGRESS NOTE DATE OF SERVICE: 11/03/2019 This 79-year-old woman was admitted with multiple medical problems and bilateral leg cellulitis, left more than the right. Also, had failure of outpatient treatment. The cultures are showing no organisms at this time except moderate volume polymorphonuclear leukocytes. PT/OT evaluating the patient closely. IV antibiotics also. No chest pain. No palpitations. No fever. Wound care has also been done. PHYSICAL EXAMINATION: Alert and oriented x3. Pulse 79, blood pressure 168/87, respiration 18, temperature 98.2, pulse ox 98% on room air. HEENT: Conjunctivae normal. Oral mucosa moist. NECK: No jugular venous distention. No lymph node enlargement. CARDIOVASCULAR: S1, S2. RESPIRATORY: Diminished breath sounds at the bases. No rhonchi, no crackles. ABDOMEN: Soft, nontender. LEGS: Bilateral leg cellulitis, left more than the right. NERVOUS SYSTEM: No focal deficits. LABS: At this time shows WBC 3.2, hemoglobin 12.6, sodium ( ), potassium 3.8. Vancomycin 10.2. ASSESSMENT: 1. Bilateral leg cellulitis, left more than the right with failure of outpatient treatment with surrounding cellulitis. 2. Increased AST. 3. No evidence of osteomyelitis in the MRI. 4. Hypertension. 5. History of degenerative joint disease. 6. History of rheumatoid arthritis and deformities. 7. History of breast cancer with double mastectomy. 8. History of colon cancer surgery. 9. History urinary tract infection. 10.History of MRSA. 11.History of degenerative joint disease and knee replacements. 12.DVT prophylaxis. 13.GI prophylaxis. RECOMMENDATIONS AND DISCUSSION: In this 79-year-old woman who presented with multiple complex medical issues, we will monitor the patient closely, continue the current management and symptomatic treatment. Continue the antibiotics. Otherwise, closely follow with Infectious Disease. Guarded prognosis. Further recommendations to follow. MMODL / IJN: [id number] /
[2019-11-04] MEDS: AMPICILLIN-SULBACTAM 3 GM in SODIUM CHLORIDE 0.9% 100 ML IVPB SCH ×2 (05:29→13:23)
[2019-11-04 05:30] VITALS: BP 150/65; PULSE 70; TEMP 98
[2019-11-04] MEDS: amLODIPine 10 MG TAB PO SCH (08:17)
[2019-11-04] MEDS: LACTOBACILLUS ACIDOPH & BULGAR 1 EACH PACKET PO SCH (08:17)
[2019-11-04] MEDS: METOPROLOL TARTRATE 50 MG TAB PO SCH (08:17)
[2019-11-04] MEDS: HEPARIN SODIUM,PORCINE 5,000 UNIT/ML 1 ML VIAL SQ SCH (08:17)
[2019-11-04] MEDS: PANTOPRAZOLE 40 MG TABLET PO SCH (08:17)
[2019-11-04] MEDS: ANASTROZOLE 1 MG TAB PO SCH (08:19)
[2019-11-04 09:59] LABS: Basophils % (A) 0 %; Eosinophils # (A) 0.3 k/uL (0-0.7); Eosinophils % (A) 7 %; HCT 41.2 % (34.0-46.0); HGB 13.1 gm/dL (11.4-16.0); Lymphocytes # (A) 0.6 k/uL (1.0-4.8); Lymphocytes % (A) 13 %; MCH 26.7 pg (25.0-35.0); MCHC 31.8 g/dL (31.0-37.0); MCV 83.8 fL (80.0-100.0); Mean Platelet Volume 8.4; Monocytes # (A) 0.2 k/uL (0-1.0); Monocytes % (A) 4 %; Neutrophils # (A) 3.1 k/uL (1.3-7.7); Neutrophils % (A) 74 %; Platelet Count 151 k/uL (150-450); RBC 4.92 m/uL (3.80-5.40); WBC 4.2 k/uL (3.8-10.6)
[2019-11-04 10:06] LABS: C Reactive Protein 8.6 mg/L (<10.0)
--- NOTE | 2019-11-04 10:46 | PN ---
PROGRESS NOTE DATE OF SERVICE: 11/03/2019 REASON FOR FOLLOWUP: Left foot wound and cellulitis. INTERVAL HISTORY: The patient is currently afebrile. She is breathing comfortably. She denies having any chest pain or any cough. No nausea, no vomiting. No abdominal pain. No diarrhea. PHYSICAL EXAMINATION: Blood pressure 151/67 with a pulse of 72, temperature 98.2. She is 97% on room air. General description is an elderly female lying in bed in no distress. RESPIRATORY SYSTEM: Unlabored breathing. Clear to auscultation anteriorly. HEART: S1, S2. Regular rate and rhythm. ABDOMEN: Soft, no tenderness. Leg wounds are currently dressed up. No obvious drainage on the dressing. LABS: White count is 3.7. Blood culture has been negative. Local culture with skin bryn. DIAGNOSTIC IMPRESSION AND PLAN: Patient with nonhealing wound to the left foot and ankle area. Previous culture positive for anaerobic Gram-negative bacilli and streptococcus species. The patient is covered with Unasyn 3 grams q.6 can be transitioned to 3 grams q.8 hours when discharge to skilled nursing for two weeks. Local care to continue as ordered. Continue supportive care. MMODL / IJN: [id number] /
--- NOTE | 2019-11-04 12:35 | P.DS ---
Providers Date of admission: 10/30/19 16:35 Expected date of discharge: 11/04/19 Attending physician: Fred Galindo Consults: 10/30/19 17:39 Consult Physician Urgent Consulting Provider: Yuliet Keith Consult Reason/Comments: chronic bilateral foot wounds Do you want consulting provider notified?: Yes Primary care physician: Abhinav Abreu [facility] Course: Final diagnosis Bilateral leg cellulitis, left more than the right, with failure of outpatient treatment, with surrounding cellulitis Increased AST No evidence of osteomyelitis as noted on MRI Hypertension History of degenerative joint disease History of rheumatoid arthritis with deformities History of breast cancer with double mastectomy History of colon cancer surgery History of urinary tract infections History of methicillin-resistant Staphylococcus aeruginosa History of degenerative joint disease and knee replacements DVT prophylaxis GI prophylaxis Discharge disposition Patient is being discharged in stable condition with guarded prognosis to [facility] for continued wound care, IV antibiotics, and PT/OT. Patient will follow-up with Dr. Abreu upon discharge. Patient will continue with IV antibiotics in the form of Unasyn per infectious disease. Total time taken is 35 minutes. History of present illness This is a 79-year-old female who was recently admitted with multiple medical problems and bilateral leg cellulitis left more than the right and is being closely monitored. Patient was found to have failed outpatient treatment and is requiring IV antibiotic therapy in the outpatient setting. Cultures have been negative thus far showing moderate volume polymorphonuclear leukocytes. Patient is continue with wound care as well to bilateral lower extremities. Currently no reports of chest pain, shortness of breath, or palpitations. Patient is afebrile. No reports of nausea or vomiting and patient is tolerating diet. Patient will be going to [facility] for IV antibiotic therapy along with PT/OT for strength and mobility. On exam vital signs are stable. Temp is 98F, pulse is 70, respirations are 18, blood pressure is 150/65, oxygen saturation is 97% on room air. Cardio S1, S2 are present. Respiratory system shows diminished breath sounds at the bases otherwise clear to auscultation. Abdomen is soft, thin, nontender. Nervous system shows mild diffuse weakness. Please refer to medication reconciliation sheet for a list of medications. Patient Condition at Discharge: Stable Plan - Discharge Summary Discharge Rx Participant: No New Discharge Prescriptions: New Ibuprofen [Motrin] 400 mg PO Q6HR PRN tab PRN Reason: Pain Multivitamins, Thera [Multivitamin (formulary)] 1 each PO DAILY@1200 tab Pantoprazole [Protonix] 40 mg PO AC-BRKFST tablet.dr Joyner [Santyl] 1 applic TOPICAL DAILY applic Ampicillin-Sulbactam [Unasyn] 3 gm IVPB Q6HR 14 Days vial Continue amLODIPine BESYLATE [Norvasc] 10 mg PO DAILY@0700 Metoprolol Tartrate [Lopressor] 50 mg PO BID@0700,1830 Anastrozole [Arimidex] 1 mg PO DAILY@0700 Citracal Petites 2 tab PO BID@0700,1830 L.acidoph,Paracasei, B.lactis [Probiotic] 1 cap PO DAILY@0700 Entecavir 0.5 mg PO DAILY@0530 Discontinued Ibuprofen [Advil] 200 mg PO BID@0700,1830 Levofloxacin [Levaquin] 500 mg PO DAILY Discharge Medication List Anastrozole [Arimidex] 1 mg PO DAILY@0700 03/05/14 [History] Metoprolol Tartrate [Lopressor] 50 mg PO BID@0700,1830 03/05/14 [History] amLODIPine BESYLATE [Norvasc] 10 mg PO DAILY@0700 03/05/14 [History] Citracal Petites 2 tab PO BID@0700,1830 11/02/16 [History] Entecavir 0.5 mg PO DAILY@0530 10/30/19 [History] L.acidoph,Paracasei, B.lactis [Probiotic] 1 cap PO DAILY@0700 10/30/19 [History] Ampicillin-Sulbactam [Unasyn] 3 gm IVPB Q6HR 14 Days vial 11/04/19 [Rx] Ar [Santyl] 1 applic TOPICAL DAILY applic 11/04/19 [Rx] Ibuprofen [Motrin] 400 mg PO Q6HR PRN tab 11/04/19 [Rx] Multivitamins, Thera [Multivitamin (formulary)] 1 each PO DAILY@1200 tab 11/04/19 [Rx] Pantoprazole [Protonix] 40 mg PO AC-BRKFST tablet. 11/04/19 [Rx] Follow up Appointment(s)/Referral(s): Abhinav Abreu III, MD [Primary Care Provider] - 1-2 days [facility] [NON-STAFF] - 11/11/19 8:00 am Patient Instructions/Handouts: MRSA (Methicillin-Resistant Staphylococcus Aureus) (DC), Wound Infection (DC) Activity/Diet/Wound Care/Special Instructions: [facility] [place] Activity as tolerated Continue current diet Continue with IV antibiotics Follow-up with primary care provider upon discharge Continue with wound care: Left foot ulcer wound: Cleanse with normal saline and apply absorptive silver, dry gauze, rolled gauze secured with paper tape. Change on /Wednesdays/Fridays Bilateral lower extremity wounds: Cleanse the wound and area with normal saline and apply Santyl, saline moistened gauze, dry gauze, and rolled gauze secured with paper tape daily Discharge Disposition: TRANSFER TO SNF/ECF
[2019-11-04] MEDS: IBUPROFEN 400 MG TAB PO PRN (13:21)
[2019-11-04] MEDS: MULTIVITAMINS, THERA 1 EACH TAB PO SCH (13:23)
[2019-11-04] MEDS: COLLAGENASE 250 UNIT/GM OINTMENT 30 GM TUBE TOPICAL SCH (13:24)
--- NOTE | 2019-11-04 13:58 | PN ---
PROGRESS NOTE DATE OF SERVICE: 11/04/2019 REASON FOR FOLLOWUP: Left foot wound cellulitis. INTERVAL HISTORY: The patient is currently afebrile, has been breathing comfortably. Denies having any chest pain or any cough. No nausea, no vomiting, no abdominal pain. Pain to the left foot. PHYSICAL EXAMINATION: Blood pressure 150/65 with a pulse of 73, temperature 98, she is 97% on room air. General description is an elderly female, up in the chair in no distress. RESPIRATORY SYSTEM: Unlabored breathing, clear to auscultation anteriorly. HEART: S1, S2. Regular rate and rhythm. ABDOMEN: Soft, no tenderness. Left foot is currently dressed up with no obvious drainage on the dressing. LABS: White count 4.2. DIAGNOSTIC IMPRESSION AND PLAN: Patient with left foot wound secondary to cellulitis, outpatient culture with multiple pathogen including Strep anaerobic. She is on Unasyn to continue for 2 weeks and close outpatient followup. Continue supportive care. Local wound care to continue as ordered. MMODL / IJN: [id number] /
== END 2019-11-04 16:00 | DRG 603 ==
LOC: EC 12:42 → 6NMEDSUR 16:35
PROVIDERS: ADMIT Hospitalist; ATTEND Hospitalist
PROC: 02HV33Z Insertion of Infusion Device into Superior Vena Cava, Percutaneous Approach (ICD-10-PCS; principal; 2019-10-31 14:30)
DX: L03.116 Cellulitis of left lower limb (principal); L97.822 Non-pressure chronic ulcer of other part of left lower leg with fat layer exposed; L97.912 Non-pressure chronic ulcer of unspecified part of right lower leg with fat layer exposed; L03.115 Cellulitis of right lower limb; I10 Essential (primary) hypertension; I49.3 Ventricular premature depolarization; I73.9 Peripheral vascular disease, unspecified; M06.9 Rheumatoid arthritis, unspecified; S91.301A Unspecified open wound, right foot, initial encounter; S91.302A Unspecified open wound, left foot, initial encounter; Z79.811 Long term (current) use of aromatase inhibitors; Z79.899 Other long term (current) drug therapy; Z80.1 Family history of malignant neoplasm of trachea, bronchus and lung; Z85.038 Personal history of other malignant neoplasm of large intestine; Z85.3 Personal history of malignant neoplasm of breast; Z86.14 Personal history of Methicillin resistant Staphylococcus aureus infection; Z87.440 Personal history of urinary (tract) infections; Z90.49 Acquired absence of other specified parts of digestive tract; Z90.710 Acquired absence of both cervix and uterus; Z60.2 Problems related to living alone; Z92.3 Personal history of irradiation; Z96.653 Presence of artificial knee joint, bilateral; Z83.6 Family history of other diseases of the respiratory system; Z88.5 Allergy status to narcotic agent; Z88.1 Allergy status to other antibiotic agents; Z91.041 Radiographic dye allergy status
CPT/HCPCS: 36415; 36573; 80048; 80053; 80202; 81003; 83605; 84134; 85025; 85610; 85730; 86140; 87040; 87070; 87205; 93005; 94760; 96365; 96366; 96367; 99285

== ENCOUNTER → 2021-05-27 | Outpatient (CLI) | payer MEDICARE ==
[2021-05-27 16:13] LABS: Basophils # (A) 0.02 X 10*3/uL (0.00-0.10); Basophils % (A) 0.3 %; Eosinophils # (A) 0.36 X 10*3/uL (0.04-0.35); Eosinophils % (A) 4.6 %; HCT 38.6 % (37.2-46.3); HGB 11.7 g/dL (12.0-15.0); Lymphocytes # (A) 0.52 X 10*3/uL (0.90-5.00); Lymphocytes % (A) 6.7 %; MCH 25.9 pg (27.0-32.0); MCHC 30.3 g/dL (32.0-37.0); MCV 85.4 fL (80.0-97.0); Monocytes # (A) 0.16 X 10*3/uL (0.20-1.00); Monocytes % (A) 2.1 %; Neutrophils # (A) 6.67 X 10*3/uL (1.80-7.70); Neutrophils % (A) 85.9 %; Platelet Count 245 X 10*3/uL (140-440); RBC 4.52 X 10*6/uL (4.10-5.20); RDW 13.7 % (11.5-14.5); WBC 7.76 X 10*3/uL (4.50-10.00)
[2021-05-28 00:32] LABS: Chol/HDL Ratio 3.65 Ratio; HDL Cholesterol 42.5 mg/dL (40.00-60.00); LDL Cholesterol,Calculated 85.9 mg/dL (0.0-131.0); VLDL Calculation 26.6 mg/dL (5.00-40.00)
[2021-05-28 00:33] LABS: African American GFR (CKD) 96.6 (60.0-200.0); Albumin 4.3 g/dL (3.8-4.9); Albumin/Globulin Ratio 1.26 (1.60-3.17); Anion Gap 13.6 mmol/L (4.00-12.00); BUN/Creat Ratio 27.01 Ratio (12.00-20.00); Blood Urea Nitrogen 17.5 mg/dL (9.0-27.0); Carbon Dioxide 25.6 mmol/L (21.6-31.8); Globulin 3.5 g/dL (1.6-3.3); Non-African American GFR(CKD) 83.4 (60.0-200.0); Total Bilirubin 0.3 mg/dL (0.30-1.20); Total Protein 7.8 g/dL (6.2-8.2)
[2021-05-29 19:23] LABS: Alpha Fetoprotein, Tumor Mkr <1.82 ng/mL (0.00-7.90); Hepatitis B Surface Antibody NonReactive (Nonreactive); Hepatitis B Surface Antigen Confirmed reactive (Nonreactive)
== END | disposition home or self-care (01) ==
LOC: LABWHC1 09:00
PROVIDERS: ATTEND Family Medicine
DX: Z13.220 Encounter for screening for lipoid disorders (principal); B19.10 Unspecified viral hepatitis B without hepatic coma
CPT/HCPCS: 36415; 80053; 80061; 82105; 85025; 86706; 87340

== ENCOUNTER → 2021-07-16 | Outpatient (CLI) | payer MEDICARE ==
--- NOTE | 2021-07-16 08:30 | US ---
EXAMINATION TYPE: US liver DATE OF EXAM: 07/16/2021 COMPARISON: US liver 2019. CT abdomen November 08, 2017. MRCP March 20, 2018 CLINICAL HISTORY: B18.1 CHR VIRAL HEPATITIS B WITHOUT DELTA AGENT. Hepatitis B EXAM MEASUREMENTS: Liver Length: 15.5 cm Gallbladder Wall: 0.2 cm CBD: 1.0 cm Right Kidney: 10.4 x 4.0 x 4.5 cm Pancreas: visualized portions wnl, tail limited by overlying midline bowel gas Liver: wnl Gallbladder: multiple small shadowing stones seen Evidence for sonographic Haas's sign: no CBD: Perhaps mildly dilated Right Kidney: wnl Visualized pancreas remains within normal limits. Visualized liver remains slightly heterogeneous in appearance without new mass or worsening ductal dilatation seen on images saved. No new surrounding a scites. Common bile duct stable from prior studies accounting for technical differences. Gallbladder has distended margins with small mobile shadowing stones redemonstrated. No abnormal wall thickening or surrounding ascites. Negative sonographic Haas's sign. Right kidney shows no hydronephrosis. IMPRESSION: No new focal intrahepatic mass or increasing biliary dilatation. No new ascites.
== END | disposition home or self-care (01) ==
LOC: RADUSWWP 07:46
PROVIDERS: ATTEND Internal Medicine Gastroenterology
DX: B18.1 Chronic viral hepatitis B without delta-agent (principal)
CPT/HCPCS: 76705

== ENCOUNTER → 2021-12-06 | Outpatient (CLI) | payer MEDICARE ==
[2021-12-06 18:24] LABS: Basophils # (A) 0.01 X 10*3/uL (0.00-0.10); Basophils % (A) 0.1 %; Eosinophils # (A) 0.12 X 10*3/uL (0.04-0.35); Eosinophils % (A) 1.7 %; HCT 43.9 % (37.2-46.3); HGB 13.2 g/dL (12.0-15.0); Immature Grans, Automated 0.3 %; Lymphocytes # (A) 0.41 X 10*3/uL (0.90-5.00); Lymphocytes % (A) 5.7 %; MCH 25.7 pg (27.0-32.0); MCHC 30.1 g/dL (32.0-37.0); MCV 85.6 fL (80.0-97.0); Mean Platelet Volume 10.6 fL (9.5-12.2); Monocytes # (A) 0.09 X 10*3/uL (0.20-1.00); Monocytes % (A) 1.3 %; NRBC Per 100 WBC 0 /100 WBCS (0.0-0.0); Neutrophils # (A) 6.49 X 10*3/uL (1.80-7.70); Neutrophils % (A) 90.9 %; Platelet Count 320 X 10*3/uL (140-440); RBC 5.13 X 10*6/uL (4.10-5.20); RDW 14.5 % (11.5-14.5); WBC 7.14 X 10*3/uL (4.50-10.00)
[2021-12-06 23:41] LABS: African American GFR (CKD) 94.2 (60.0-200.0); Albumin 4.5 g/dL (3.8-4.9); Albumin/Globulin Ratio 1.18 (1.60-3.17); Anion Gap 17.2 mmol/L (10.00-18.00); BUN/Creat Ratio 24.29 Ratio (12.00-20.00); Calcium 10.3 mg/dL (8.7-10.3); Carbon Dioxide 24.8 mmol/L (20.0-27.5); Globulin 3.8 g/dL (1.6-3.3); Non-African American GFR(CKD) 81.3 (60.0-200.0); Potassium 4.6 mmol/L (3.5-5.5); Total Bilirubin 0.3 mg/dL (0.30-1.20); Total Protein 8.3 g/dL (6.2-8.2)
[2021-12-07 07:22] LABS: Hepatitis BE Antibody Nonreactive (Nonreactive); Hepatitis BE Antigen REACTIVE (Nonreacitve)
[2021-12-07 10:53] LABS: Hepatitis B Virus DNA Not detected (Not detected); Hepatitis B Virus DNA, Quant <10 IU/mL (<10); Log HBV IU/mL <1.00 (<1.00)
== END | disposition home or self-care (01) ==
LOC: LABWHC1 09:23
PROVIDERS: ATTEND Internal Medicine Gastroenterology
DX: B18.1 Chronic viral hepatitis B without delta-agent (principal)
CPT/HCPCS: 36415; 80053; 82105; 85025; 86707; 87350; 87517

== ENCOUNTER → 2021-12-13 | Outpatient (CLI) | payer MEDICARE ==
--- NOTE | 2021-12-13 12:56 | XR ---
Left foot HISTORY: Pressure ulcer left heel, L 89.512 3 views of the left foot Correlation to prior exam 10/30/2019 Hallux valgus deformity with osteoarthritic changes present. Bone mineralization is reduced which alarcon its evaluation. Arthropathy changes are present at the tarsometatarsal joints and intertarsal joints. No acute fracture or dislocation is evident. There is a plantar calcaneal spur. Large enthesophyte i s present at the insertion of the Achilles tendon. There are dense vascular calcifications, overlying artifacts. Soft tissue swelling is noted. No evident periostitis to suggest osteomyelitis. Arthropat hy the metatarsophalangeal joint of the fifth digit is also present. IMPRESSION: Findings are similar to prior exam. No convincing osteomyelitis.
== END | disposition home or self-care (01) ==
LOC: RADXRMAIN 09:34
PROVIDERS: ATTEND Thoracic Surgery (Cardiothoracic Vascular Surgery)
DX: L89.512 Pressure ulcer of right ankle, stage 2 (principal)

== ENCOUNTER → 2022-06-06 | Outpatient (CLI) | payer MEDICARE ==
[2022-06-06 15:13] LABS: Basophils # (A) 0.03 X 10*3/uL (0.00-0.10); Basophils % (A) 0.5 %; Eosinophils # (A) 0.21 X 10*3/uL (0.04-0.35); Eosinophils % (A) 3.7 %; HCT 40.9 % (37.2-46.3); HGB 12.6 g/dL (12.0-15.0); Immature Grans, Automated 0.4 %; Lymphocytes % (A) 8.8 %; MCH 26.5 pg (27.0-32.0); MCHC 30.8 g/dL (32.0-37.0); MCV 85.9 fL (80.0-97.0); Monocytes # (A) 0.11 X 10*3/uL (0.20-1.00); Monocytes % (A) 1.9 %; NRBC Per 100 WBC 0 /100 WBCS (0.0-0.0); Neutrophils # (A) 4.82 X 10*3/uL (1.80-7.70); Neutrophils % (A) 84.7 %; Platelet Count 235 X 10*3/uL (140-440); RBC 4.76 X 10*6/uL (4.10-5.20); RDW 14.3 % (11.5-14.5); WBC 5.69 X 10*3/uL (4.50-10.00)
[2022-06-06 16:14] LABS: African American GFR (CKD) 98.4 (60.0-200.0); Albumin 4.3 g/dL (3.8-4.9); Albumin/Globulin Ratio 1.3 (1.60-3.17); Anion Gap 8.7 mmol/L (10.00-18.00); BUN/Creat Ratio 28.5 Ratio (12.00-20.00); Blood Urea Nitrogen 17.1 mg/dL (9.0-27.0); Calcium 9.4 mg/dL (8.7-10.3); Carbon Dioxide 29.3 mmol/L (20.0-27.5); Globulin 3.3 g/dL (1.6-3.3); Non-African American GFR(CKD) 84.9 (60.0-200.0); Potassium 4.8 mmol/L (3.5-5.5); Total Bilirubin 0.3 mg/dL (0.30-1.20); Total Protein 7.6 g/dL (6.2-8.2)
[2022-06-06 16:58] LABS: Hepatitis B Surface AB- Quant 3.5 mIU/mL; Hepatitis B Surface Antibody Nonreactive (Nonreactive)
[2022-06-06 19:00] LABS: Hepatitis B Surface Antigen Confirmed reactive (Nonreactive)
[2022-06-06 19:21] LABS: Alpha Fetoprotein, Tumor Mkr <1.82 ng/mL (0.00-7.90)
[2022-06-07 10:32] LABS: Hepatitis B Virus DNA Not detected (Not detected); Hepatitis B Virus DNA, Quant <10 IU/mL (<10); Log HBV IU/mL <1.00 (<1.00)
== END | disposition home or self-care (01) ==
LOC: LABWHC1 08:18
PROVIDERS: ATTEND Internal Medicine Gastroenterology
DX: B18.1 Chronic viral hepatitis B without delta-agent (principal)
CPT/HCPCS: 36415; 80053; 82105; 85025; 86706; 87340; 87517

== ENCOUNTER → 2022-07-18 | Outpatient (CLI) | payer MEDICARE ==
--- NOTE | 2022-07-18 16:44 | CA ---
Transthoracic Echo Report Name: Fiona Krause Age: 82 Gender: F : 1940 Exam Date: 07/18/2022 15:04 Exam Location: [facility] Ht (in): 63 Wt (lb): 97 Ordering Physician: Abhinav Abreu MD Attending/Referring Phys: [id number], Lois Housekeeping Attendant Claudia Allen, MELANIE Procedure CPT: Indications: R01.1 CARDIAC MURMUR, UNSPECIFIED Cardiac Hx: Technical Quality: Good Contrast 1: Total Dose (mL): Contrast 2: Total Dose (mL): MEASUREMENTS (Male / Female) Normal Values 2D ECHO LV Diastolic Diameter PLAX 3.3 cm 4.2 - 5.9 / 3.9 - 5.3 cm LV Systolic Diameter PLAX 1.9 cm IVS Diastolic Thickness 0.9 cm 0.6 - 1.0 / 0.6 - 0.9 cm LVPW Diastolic Thickness 0.9 cm 0.6 - 1.0 / 0.6 - 0.9 cm LV Relative Wall Thickness 0.6 RV Internal Dim ED PLAX 2.5 cm LVOT Diameter 1.8 cm LA Systolic Diameter LX 2.6 cm 3.0 - 4.0 / 2.7 - 3.8 cm LA Volume 39.3 cm??? 18 - 58 / 22 - 52 cm??? M-MODE Aortic Root Diameter MM 2.8 cm MV E Point Septal Separation 0.5 cm AV Cusp Separation MM 1.4 cm DOPPLER AV Peak Velocity 210.2 cm/s AV Peak Gradient 17.7 mmHg AV Mean Velocity 137.8 cm/s AV Mean Gradient 9.0 mmHg AV Velocity Time Integral 50.2 cm LVOT Peak Velocity 120.1 cm/s LVOT Peak Gradient 5.8 mmHg AV Area Cont Eq pk 1.4 cm??? MV Area PHT 4.1 cm??? Mitral E Point Velocity 130.5 cm/s Mitral A Point Velocity 107.9 cm/s Mitral E to A Ratio 1.2 MV Deceleration Time 187.0 ms TR Peak Velocity 298.1 cm/s TR Peak Gradient 35.5 mmHg Right Ventricular Systolic Press 40.0 mmHg FINDINGS Left Ventricle Left ventricular ejection fraction is estimated at 60-65 %. Left ventricular wall thickness normal. Small left ventricular cavity. Right Ventricle Normal right ventricular size. Mild pulmonary hypertension. Right Atrium Normal right atrial size. Left Atrium Normal left atrial size. No evidence for an atrial septal defect. Mitral Valve Moderate thickening/calcification of the anterior mitral valve leaflet. Moderate thickening/calcification of the posterior mitral valve leaflet. Moderate mitral annular calcification. Trace to mild mitral regurgitation. Aortic Valve Trileaflet aortic valve. Aortic valve sclerosis. Mild aortic stenosis with a peak gradient of 18 mmHg and a mean gradient of 9 mmHg. Tricuspid Valve Structurally normal tricuspid valve. Mild tricuspid regurgitation. Pulmonic Valve Mild pulmonic regurgitation. Pericardium Normal pericardium. No pericardial effusion. Aorta Normal size aortic root and proximal ascending aorta. CONCLUSIONS Left ventricular ejection fraction 60-65% Moderate mitral annular calcification Mild mitral regurgitation Mild aortic stenosis Mild tricuspid regurgitation RVSP 40 No pericardial effusion Previewed by: Dr. Favio Salomon DO (Electronically Signed) Final Date: 18 July 2022 16:43
== END | disposition home or self-care (01) ==
LOC: RADECHMAIN 14:59
PROVIDERS: ATTEND Family Medicine
DX: I08.3 Combined rheumatic disorders of mitral, aortic and tricuspid valves (principal); R01.1 Cardiac murmur, unspecified
CPT/HCPCS: 93306

== ENCOUNTER → 2022-12-05 | Outpatient (CLI) | payer MEDICARE, OTHER ==
--- NOTE | 2022-12-05 09:17 | US ---
EXAMINATION TYPE: US liver DATE OF EXAM: 12/05/2022 COMPARISON: NONE CLINICAL HISTORY: B18.1 chronic viral hep b wo delta agent. known hep C, no symptoms TECHNIQUE: Multiple sonographic images of the right upper quadrant are obtained. FINDINGS: EXAM MEASUREMENTS: Liver Length: 16.0 cm Gallbladder Wall: 0.3 cm CBD: 0.8 cm Right Kidney: 11.5 x 3.9 x 4.2 cm Pancreas: wnl Liver: wnl Gallbladder: dependant stones with borderline wall thicknesses and appearance if cholecystic gutter fluid seen Evidence for sonographic Haas's sign: no CBD: wnl Right Kidney: multiple stones seen, largest superior pole = 0.9 x 0.9cm IMPRESSION: 1. Cholelithiasis with borderline wall thickening and some surrounding fluid. Correlate clinically. 2. Multiple right renal calculi.
[2022-12-05 16:28] LABS: African American GFR (CKD) 98.4 (60.0-200.0); Albumin 4.4 g/dL (3.8-4.9); Albumin/Globulin Ratio 1.26 (1.60-3.17); Anion Gap 12.3 mmol/L (10.00-18.00); BUN/Creat Ratio 36.67 Ratio (12.00-20.00); Calcium 9.8 mg/dL (8.7-10.3); Carbon Dioxide 29.7 mmol/L (20.0-27.5); Globulin 3.5 g/dL (1.6-3.3); Non-African American GFR(CKD) 84.9 (60.0-200.0); Potassium 4.4 mmol/L (3.5-5.5); Total Bilirubin 1.1 mg/dL (0.30-1.20); Total Protein 7.9 g/dL (6.2-8.2)
[2022-12-06 06:48] LABS: Hepatitis BE Antibody REACTIVE (Nonreactive); Hepatitis BE Antigen Nonreactive (Nonreactive)
[2022-12-07 11:16] LABS: Hepatitis B Virus DNA DETECTED (Not detected); Hepatitis B Virus DNA, Quant 17 IU/mL (<10); Log HBV IU/mL 1.23 (<1.00)
== END | disposition home or self-care (01) ==
LOC: RADUSWWP 08:15
PROVIDERS: ATTEND Internal Medicine Gastroenterology
DX: K80.20 Calculus of gallbladder without cholecystitis without obstruction (principal); N20.0 Calculus of kidney; B18.1 Chronic viral hepatitis B without delta-agent
CPT/HCPCS: 76705; 80053; 82105; 85025; 86707; 87350; 87517

== ENCOUNTER → 2023-03-06 | Outpatient (CLI) | payer MEDICARE, OTHER ==
[2023-03-06 16:20] LABS: ALT 12 U/L (8-44); AST 27 U/L (13-35); Albumin 4.5 d/dL (3.8-4.9); Albumin/Globulin Ratio 1.32 Ratio (1.60-3.17); Alkaline Phosphatase 96 U/L (41-126); BUN/Creat Ratio 26.71 Ratio (12.00-20.00); Blood Urea Nitrogen 18.7 mg/dL (9.0-27.0); Calcium 10.4 mg/dL (8.7-10.3); Carbon Dioxide 29.1 mmol/L (21.6-31.8); Chloride 100 mmol/L (96-109); Globulin 3.4 d/dL (1.6-3.3); Glucose 124 mg/dL (70-110); Potassium 4.5 mmol/L (3.5-5.5); Sodium 143 mmol/L (135-145); Total Bilirubin 0.3 mg/dL (0.3-1.2); Total Protein 7.9 d/dL (6.2-8.2)
[2023-03-06 16:42] LABS: Basophils # (A) 0.02 X 10*3/uL (0.00-0.10); Basophils % (A) 0.3 %; Eosinophils # (A) 0.18 X 10*3/uL (0.04-0.35); HCT 41.5 % (37.2-46.3); HGB 12.9 d/dL (12.0-15.0); Lymphocytes # (A) 0.57 X 10*3/uL (0.90-5.00); Lymphocytes % (A) 9.6 %; MCH 27.4 pg (27.0-32.0); MCHC 31.1 d/dL (32.0-37.0); MCV 88.3 FL (80.0-97.0); Mean Platelet Volume 11.2 FL (9.5-12.2); Monocytes # (A) 0.18 X 10*3/uL (0.20-1.00); NRBC Per 100 WBC 0 X 10*3/uL (0.00-0.01); Neutrophils # (A) 4.97 X 10*3/uL (1.80-7.70); Neutrophils % (A) 83.4 %; Platelet Count 269 X 10*3/uL (140-440); RDW 13.8 % (11.5-14.5); WBC 5.96 X 10*3/uL (4.50-10.00)
[2023-03-07 06:00] LABS: Hepatitis BE Antibody REACTIVE (Nonreactive); Hepatitis BE Antigen Nonreactive (Nonreactive)
[2023-03-07 13:58] LABS: Hepatitis B Virus DNA Not detected (Not detected); Hepatitis B Virus DNA, Quant <10 IU/mL (<10); Log HBV IU/mL <1.00 (<1.00)
== END | disposition home or self-care (01) ==
LOC: LABWHC1 09:06
PROVIDERS: ATTEND Internal Medicine Gastroenterology
DX: B18.1 Chronic viral hepatitis B without delta-agent (principal)
CPT/HCPCS: 36415; 80053; 82105; 85025; 86707; 87350; 87517

== ENCOUNTER → 2023-06-27 | Outpatient (CLI) | payer MEDICARE, OTHER ==
--- NOTE | 2023-06-27 11:14 | MR ---
"EXAMINATION TYPE: MR sacrum/coccyx wo con DATE OF EXAM: 06/27/2023 COMPARISON: None HISTORY: Open wound on tailbone Standard multiplanar, multisequence MRI departmental protocol Multiplanar, multisequence images of the sacrum and coccyx were acquired without contrast. FINDINGS: There is abnormal signal involving a mid coccygeal segment adjacent to an area of subcutaneous edema and suspected ulceration with skin thickening and adjacent inflammatory changes. The degenerative disc disease L4-5 and L5-S1. Facet arthropathy noted. SI joints are maintained. IMPRESSION: Findings are compatible with osteomyelitis of the mid coccygeal segment with adjacent soft tissue wou nd or ulceration and surrounding edema. A Yellow level critical message alert has been initiated for Aydin Lopez MD via the [employer] 0 | Critical Results System on 06/27/2023 11:11 AM. This message alert has been sent to Aydin Dimas i, MD via the preferences provided by the clinician for the receipt of Radiology Critical Findings. Francisco J essage ID [id number]."
== END | disposition home or self-care (01) ==
LOC: RADMRIMAIN 08:41
PROVIDERS: ATTEND Family Medicine
DX: L89.899 Pressure ulcer of other site, unspecified stage (principal)
CPT/HCPCS: 72195

== ENCOUNTER → 2023-07-06 | Day surgery (SDC) | payer MEDICARE, OTHER ==
[~2023-07-06] MED LIST changes: -DENOSUMAB 60 MG/ML 1 ML SYRINGE SQ ONE; +LIDOCAINE 1% INJ 10MG/ML (20 ML MDV) SQ ONE
[2023-07-06 10:32] LABS: Basophils % (A) 0 %; Eosinophils # (A) 0.2 k/uL (0-0.7); Eosinophils % (A) 3 %; HCT 41.6 % (34.0-46.0); HGB 13.7 gm/dL (11.4-16.0); Lymphocytes # (A) 0.7 k/uL (1.0-4.8); Lymphocytes % (A) 10 %; MCH 27.2 pg (25.0-35.0); MCHC 32.8 g/dL (31.0-37.0); MCV 82.9 fL (80.0-100.0); Mean Platelet Volume 8.2; Monocytes # (A) 0.2 k/uL (0-1.0); Monocytes % (A) 3 %; Neutrophils # (A) 5.5 k/uL (1.3-7.7); Neutrophils % (A) 83 %; Platelet Count 196 k/uL (150-450); RBC 5.01 m/uL (3.80-5.40); RDW 15.4 % (11.5-15.5); WBC 6.7 k/uL (3.8-10.6)
[2023-07-06 10:37] LABS: African American GFR (CKD) >90 (>60 ml/min/1.73 sqM); Anion Gap 9 mmol/L; Blood Urea Nitrogen 23 mg/dL (7-17); Carbon Dioxide 30 mmol/L (22-30); Chloride 103 mmol/L (98-107); Non-African American GFR(CKD) 87 (>60 ml/min/1.73 sqM); Potassium 4.4 mmol/L (3.5-5.1); Sodium 142 mmol/L (137-145)
[2023-07-06 10:41] VITALS: BP 102/62; PULSE 72; RESP 16; TEMP 98.2
--- NOTE | 2023-07-06 12:47 | IR ---
PICC LINE PLACEMENT: HISTORY: Infection requiring long-term antibiotic therapy PROCEDURE: Ultrasound and fluoroscopic guidance of PICC line placement. COMPLICATIONS: None ANESTHESIA: 1. 1% Lidocaine locally. FINDINGS/TECHNIQUE: The procedure was explained to the patient. The risks, complications, benefits and alternatives were discussed and any questions were answered. Informed consent was obtained. The patient was placed supine on the fluoroscopic table and prepped and draped in the usual sterile fash ion. Utilizing a 21 gauge needle and sonographic and fluoroscopic guidance, access in the right bas ilic vein was achieved and there is placement of a 0.018 guidewire. The vein is patent. A 4-F sheat h was placed over the guidewire. The guidewire and dilator were removed and a 4-F. PICC line was mercedes brittany through the sheath with the tip at the level of the SVC. The sheath was removed, the catheter wa s flushed and sutured into position. The patient was stable throughout the procedure and remained st able upon discharge from the Department of Radiology. The vein puncture was patent under ultrasound. A maurice scale image was obtained to document patency of the vein punctured. All elements of the maximal barrier technique were utilized. FLUOROSCOPY TIME: DAP 0.108Gy cm2 IMPRESSION: Successful PICC line placement under ultrasound and fluoroscopic guidance.
== END ==
LOC: CATHCVL 09:17
PROVIDERS: ATTEND Radiology Diagnostic Radiology
DX: Z45.2 Encounter for adjustment and management of vascular access device (principal); I10 Essential (primary) hypertension; M06.9 Rheumatoid arthritis, unspecified; D64.9 Anemia, unspecified; Z79.899 Other long term (current) drug therapy
CPT/HCPCS: 36573; 80051; 82565; 84520; 85025; C1751; C1769; J2001

== ENCOUNTER → 2023-09-04 | Outpatient (CLI) | payer MEDICARE, OTHER ==
--- NOTE | 2023-09-04 07:51 | US ---
EXAMINATION TYPE: US liver DATE OF EXAM: 09/04/2023 COMPARISON: NONE CLINICAL INDICATION: Female, 83 years old with history of B18.1 CHRONIC VIRAL HEPATITIS B WITHOUT DEL TA-AGEN; HEP B TECHNIQUE: Multiple sonographic images of the right upper quadrant are obtained. FINDINGS: EXAM MEASUREMENTS: Liver Length: 17.2 cm Gallbladder Wall: 0.1 cm CBD: 1.0 cm Right Kidney: 10.7x4.5x5.3 cm CLAIM INVESTIGATOR NOTES: Pancreas: Tail obscured by overlying bowel gas Liver: wnl, upper limits Gallbladder: several tiny gravel like stones Evidence for sonographic Haas's sign: Yes CBD: enlarged Right Kidney: at least 5 shadowing stones measuring up to 0.8cm, some within the dilated collecting system IMPRESSION: 1. Nonobstructing right renal stones. 2. Small amount of gravel may be within the gallbladder. Common bile duct is enlarged measuring 1.0 c m. 3. Hepatomegaly
[2023-09-04 15:01] LABS: Basophils # (A) 0.02 X 10*3/uL (0.00-0.10); Basophils % (A) 0.3 %; Eosinophils # (A) 0.28 X 10*3/uL (0.04-0.35); HCT 43.3 % (37.2-46.3); HGB 13.8 g/dL (12.0-15.0); Lymphocytes # (A) 0.86 X 10*3/uL (0.90-5.00); Lymphocytes % (A) 12.2 %; MCH 27.3 pg (27.0-32.0); MCHC 31.9 g/dL (32.0-37.0); MCV 85.7 FL (80.0-97.0); Mean Platelet Volume 12.3 FL (9.5-12.2); Monocytes # (A) 0.38 X 10*3/uL (0.20-1.00); Monocytes % (A) 5.4 %; NRBC Per 100 WBC 0 X 10*3/uL (0.00-0.01); Neutrophils # (A) 5.48 X 10*3/uL (1.80-7.70); Neutrophils % (A) 77.8 %; Platelet Count 190 X 10*3/uL (140-440); RBC 5.05 X 10*6/uL (4.10-5.20); RDW 14.7 % (11.5-14.5); WBC 7.04 X 10*3/uL (4.50-10.00)
[2023-09-04 15:38] LABS: Hepatitis B Surface AB- Quant 3.5 mIU/mL
[2023-09-04 16:02] LABS: ALT 14 U/L (8-44); AST 26 U/L (13-35); Albumin 4.8 g/dL (3.8-4.9); Alkaline Phosphatase 96 U/L (41-126); BUN/Creat Ratio 27.57 Ratio (12.00-20.00); Blood Urea Nitrogen 19.3 mg/dL (9.0-27.0); Calcium 10.3 mg/dL (8.7-10.3); Carbon Dioxide 24.9 mmol/L (21.6-31.8); Chloride 103 mmol/L (96-109); Glucose 81 mg/dL (70-110); Potassium 4.7 mmol/L (3.5-5.5); Sodium 144 mmol/L (135-145); Total Bilirubin 0.3 mg/dL (0.3-1.2); Total Protein 7.8 g/dL (6.2-8.2)
[2023-09-04 18:48] LABS: Alpha Fetoprotein, Tumor Mkr <3.00 ng/mL (0.00-7.90); Hepatitis B Surface Antigen Conf_React
[2023-09-05 11:02] LABS: Hepatitis B Virus DNA Not detected (Not detected); Hepatitis B Virus DNA, Quant <10 IU/mL (<10); Log HBV IU/mL <1.00 (<1.00)
== END | disposition home or self-care (01) ==
LOC: RADUSWWP 07:03
PROVIDERS: ATTEND Internal Medicine Gastroenterology
DX: N20.0 Calculus of kidney (principal); R16.0 Hepatomegaly, not elsewhere classified; B18.1 Chronic viral hepatitis B without delta-agent; K83.8 Other specified diseases of biliary tract
CPT/HCPCS: 76705; 80053; 82105; 85025; 86706; 87340; 87517

== ENCOUNTER → 2024-02-01 | Outpatient (CLI) | payer MEDICARE, OTHER ==
--- NOTE | 2024-02-01 11:08 | US ---
EXAMINATION TYPE: US thyroid st tissue head/neck DATE OF EXAM: 02/01/2024 COMPARISON: NONE CLINICAL INDICATION: Female, 83 years old with history of C50.812 BREAST CANCER; Hx Breast cancer, pt has possible lymph node palpated by physician left supraclavicular region. Pt unable to point this a cici out Left supraclavicular region scanned, singular lymph node noted in this area measuring 2.5x0.7x0.4cm w ith irregular borders Bilateral neck scanned, lymphadenopathy noted bilaterally. IMPRESSION: Findings consistent with supraclavicular lymphadenopathy. Recommend CT chest and neck for further herson luation
== END | disposition home or self-care (01) ==
LOC: RADUSWWP 07:39
PROVIDERS: ATTEND Internal Medicine Hematology & Oncology
DX: C50.812 Malignant neoplasm of overlapping sites of left female breast (principal); C18.7 Malignant neoplasm of sigmoid colon; B16.1 Acute hepatitis B with delta-agent without hepatic coma; R91.1 Solitary pulmonary nodule
CPT/HCPCS: 76536

== ENCOUNTER → 2024-02-26 | Outpatient (CLI) | payer MEDICARE, OTHER ==
[2024-02-26 10:32] LABS: Basophils # (A) 0.02 X 10*3/uL (0.00-0.10); Basophils % (A) 0.3 %; Eosinophils # (A) 0.19 X 10*3/uL (0.04-0.35); Eosinophils % (A) 2.9 %; HCT 44.5 % (37.2-46.3); HGB 13.5 g/dL (12.0-15.0); Lymphocytes # (A) 0.65 X 10*3/uL (0.90-5.00); MCH 25.3 pg (27.0-32.0); MCHC 30.3 g/dL (32.0-37.0); MCV 83.3 FL (80.0-97.0); Monocytes # (A) 0.13 X 10*3/uL (0.20-1.00); NRBC Per 100 WBC 0 X 10*3/uL (0.00-0.01); Neutrophils # (A) 5.47 X 10*3/uL (1.80-7.70); Neutrophils % (A) 84.6 %; Platelet Count 198 X 10*3/uL (140-440); RBC 5.34 X 10*6/uL (4.10-5.20); RDW 14.6 % (11.5-14.5); WBC 6.47 X 10*3/uL (4.50-10.00)
[2024-02-26 11:06] LABS: Hepatitis B Surface AB- Quant 3.5 mIU/mL
--- NOTE | 2024-02-26 12:17 | US ---
EXAMINATION TYPE: US liver DATE OF EXAM: 02/26/2024 COMPARISON: NONE CLINICAL INDICATION: Female, 84 years old with history of B18.1 CHRONIC VIRAL HEP B WITHOUT DELTA AGE NT; Hep B, no symptoms TECHNIQUE: Multiple sonographic images of the right upper quadrant are obtained. FINDINGS: EXAM MEASUREMENTS: Liver Length: 14.6 cm Gallbladder Wall: 0.2 cm CBD: 0.9 cm Right Kidney: 9.1 x 4.7 x 4.8 cm Pancreas: wnl Liver: wnl , no dilated ducts cystic structures or masses. Gallbladder: sand-like dependant stones seen Evidence for sonographic Haas's sign: no CBD: dilated, normal for age Right Kidney: 1.4 x 1.5cm sinlge stone versus cluster IMPRESSION: 1. Sonographic appearance of the liver is within normal limits. Cholelithiasis. 2. No evidence for obstructive uropathy. 3. No acute process.
[2024-02-26 20:04] LABS: ALT 10 U/L (8-44); AST 33 U/L (13-35); Albumin 4.3 g/dL (3.8-4.9); Albumin/Globulin Ratio 1.08 Ratio (1.60-3.17); Alkaline Phosphatase 98 U/L (41-126); Alpha Fetoprotein, Tumor Mkr <3.00 ng/mL (0.00-7.90); BUN/Creat Ratio 35.83 Ratio (12.00-20.00); Blood Urea Nitrogen 21.5 mg/dL (9.0-27.0); Calcium 10.1 mg/dL (8.7-10.3); Carbon Dioxide 25.9 mmol/L (21.6-31.8); Chloride 100 mmol/L (96-109); Glucose 85 mg/dL (70-110); Potassium 4.6 mmol/L (3.5-5.5); Sodium 142 mmol/L (135-145); Total Bilirubin 0.3 mg/dL (0.3-1.2); Total Protein 8.3 g/dL (6.2-8.2)
[2024-02-26 23:12] LABS: Hepatitis B Surface Antigen Conf_React
[2024-02-27 09:46] LABS: Hepatitis B Virus DNA Not detected (Not detected); Hepatitis B Virus DNA, Quant <10 IU/mL (<10); Log HBV IU/mL <1.00 (<1.00)
== END | disposition home or self-care (01) ==
LOC: RADUSWWP 07:14
PROVIDERS: ATTEND Internal Medicine Gastroenterology
DX: K80.20 Calculus of gallbladder without cholecystitis without obstruction (principal); B18.1 Chronic viral hepatitis B without delta-agent
CPT/HCPCS: 76705; 80053; 82105; 85025; 86706; 87340; 87517

== ENCOUNTER → 2024-09-02 | Outpatient (CLI) | payer MEDICARE, OTHER ==
--- NOTE | 2024-09-02 08:00 | US ---
EXAMINATION TYPE: US liver DATE OF EXAM: 09/02/2024 COMPARISON: NONE CLINICAL INDICATION: Female, 84 years old with history of B181 CHRONIC HEP B; Patient denies any othe r signs, symptoms, or relevant history TECHNIQUE: Grayscale and color Doppler imaging of the right upper quadrant was performed. FINDINGS: EXAM MEASUREMENTS: Liver Length: 16.9 cm Gallbladder Wall: 0.1 cm CBD: 0.9 cm Right Kidney: 10.2 x 3.3 x 5.1 cm Pancreas: wnl Liver: wnl Gallbladder: Some layering sludge/gravel noted. No abnormal gallbladder distention, wall thickening, or surrounding fluid. Evidence for sonographic Haas's sign: No CBD: Dilated Right Kidney: Centrally located areas of echogenic shadowing may measure up to 2.3 cm. No hydronephro sis. IMPRESSION: 1. Bile duct dilated at 9 mm. Correlate with alkaline phosphatase and bilirubin levels to exclude jah iary obstruction. ERCP/MRCP if clinically indicated. 2. Layering sludge/gravel in the gallbladder. 3. Echogenic areas of shadowing centrally within the right kidney measuring up to 2.3 cm. Underlying nephrolithiasis is suggested. [facility], Workstation: [id number], 09/02/2024 7:57 AM
[2024-09-02 10:59] LABS: ALT 14 U/L (8-44); AST 23 U/L (13-35); Albumin 4.5 g/dL (3.8-4.9); Albumin/Globulin Ratio 1.41 Ratio (1.60-3.17); Alkaline Phosphatase 92 U/L (41-126); BUN/Creat Ratio 30.86 Ratio (12.00-20.00); Blood Urea Nitrogen 21.6 mg/dL (9.0-27.0); Calcium 9.8 mg/dL (8.7-10.3); Carbon Dioxide 27.6 mmol/L (21.6-31.8); Chloride 102 mmol/L (96-109); Globulin 3.2 g/dL (1.6-3.3); Glucose 89 mg/dL (70-110); Potassium 4.6 mmol/L (3.5-5.5); Sodium 142 mmol/L (135-145); Total Bilirubin 0.3 mg/dL (0.3-1.2); Total Protein 7.7 g/dL (6.2-8.2)
[2024-09-02 11:34] LABS: Basophils # (A) 0.02 X 10*3/uL (0.00-0.10); Basophils % (A) 0.4 %; Eosinophils # (A) 0.16 X 10*3/uL (0.04-0.35); Eosinophils % (A) 2.9 %; HCT 47.7 % (37.2-46.3); HGB 14.6 g/dL (12.0-15.0); Lymphocytes # (A) 0.78 X 10*3/uL (0.90-5.00); Lymphocytes % (A) 14.3 %; MCH 26.1 pg (27.0-32.0); MCHC 30.6 g/dL (32.0-37.0); MCV 85.2 FL (80.0-97.0); Mean Platelet Volume 10.6 FL (9.5-12.2); Monocytes # (A) 0.25 X 10*3/uL (0.20-1.00); Monocytes % (A) 4.6 %; NRBC Per 100 WBC 0 X 10*3/uL (0.00-0.01); Neutrophils # (A) 4.23 X 10*3/uL (1.80-7.70); Neutrophils % (A) 77.4 %; Platelet Count 84 X 10*3/uL (140-440); RDW 14.7 % (11.5-14.5); WBC 5.46 X 10*3/uL (4.50-10.00)
[2024-09-03 06:47] LABS: Hepatitis BE Antibody REACTIVE (Nonreactive); Hepatitis BE Antigen Nonreactive (Nonreactive)
[2024-09-03 10:54] LABS: Hepatitis B Virus DNA Not detected (Not detected); Hepatitis B Virus DNA, Quant <10 IU/mL (<10); Log HBV IU/mL <1.00 (<1.00)
== END | disposition home or self-care (01) ==
LOC: RADUSWWP 06:59
PROVIDERS: ATTEND Internal Medicine Gastroenterology
DX: K82.8 Other specified diseases of gallbladder (principal); B18.1 Chronic viral hepatitis B without delta-agent; K83.8 Other specified diseases of biliary tract; N28.9 Disorder of kidney and ureter, unspecified
CPT/HCPCS: 76705; 80053; 82105; 85025; 86707; 87350; 87517

== ENCOUNTER → 2025-03-12 | Outpatient (CLI) | payer MEDICARE, OTHER ==
--- NOTE | 2025-03-12 07:51 | US ---
EXAMINATION TYPE: US liver DATE OF EXAM: 03/12/2025 COMPARISON: 09/02/24 CLINICAL INDICATION: Female, 85 years old with history of B18.1 CHRONIC VIRAL HEPATITIS B WITHOUT DEL TA-AGEN; Hep B TECHNIQUE: Grayscale and color Doppler imaging of the right upper quadrant was performed. FINDINGS: EXAM MEASUREMENTS: Liver Length: 15.5 cm Gallbladder Wall: 0.19 cm CBD: 0.82 cm Right Kidney: 10.5 x 5.1 x 4.5 cm BOOKMAKER MAP NOTES: Pancreas: parts seen appear wnl Liver: heterogeneous , no suspicious masses or dilated ducts Gallbladder: multiple gallstones seen Evidence for sonographic Haas's sign: No CBD: wnl Right Kidney: Multiple stones seen. Largest measuring 1.0 x 1.3 x 0.5cm in sup pole. Mild hydronephr osis seen IMPRESSION: 1. No evidence for acute process. 2. Nonobstructing right renal calculi. 3. Cholelithiasis. 4. Hepatocellular disease without suspicious observation. [facility], , 03/12/2025 7:49 AM
[2025-03-12 10:47] LABS: Basophils # (A) 0.01 X 10*3/uL (0.00-0.10); Basophils % (A) 0.2 %; Eosinophils # (A) 0.09 X 10*3/uL (0.04-0.35); Eosinophils % (A) 1.5 %; HCT 41.8 % (37.2-46.3); HGB 13.1 g/dL (12.0-15.0); Immature Grans, Automated 0.20 %; Lymphocytes # (A) 0.50 X 10*3/uL (0.90-5.00); Lymphocytes % (A) 8.2 %; MCH 26.8 pg (27.0-32.0); MCHC 31.3 g/dL (32.0-37.0); MCV 85.7 FL (80.0-97.0); Monocytes # (A) 0.30 X 10*3/uL (0.20-1.00); Monocytes % (A) 4.9 %; NRBC Per 100 WBC 0 X 10*3/uL (0.00-0.01); Neutrophils # (A) 5.20 X 10*3/uL (1.80-7.70); Neutrophils % (A) 85.0 %; Platelet Count 109 X 10*3/uL (140-440); RBC 4.88 X 10*6/uL (4.10-5.20); RDW 14.8 % (11.5-14.5); WBC 6.11 X 10*3/uL (4.50-10.00)
[2025-03-12 10:53] LABS: ALT 13 U/L (8-44); AST 24 U/L (13-35); Albumin 4.3 g/dL (3.8-4.9); Albumin/Globulin Ratio 1.34 Ratio (1.60-3.17); Alkaline Phosphatase 104 U/L (41-126); Anion Gap 12.30 mmol/L (4.00-12.00); BUN/Creat Ratio 27.50 Ratio (12.00-20.00); Blood Urea Nitrogen 16.5 mg/dL (9.0-27.0); Calcium 9.4 mg/dL (8.7-10.3); Carbon Dioxide 28.7 mmol/L (21.6-31.8); Chloride 101 mmol/L (96-109); Globulin 3.2 g/dL (1.6-3.3); Glucose 96 mg/dL (70-110); Potassium 4.3 mmol/L (3.5-5.5); Sodium 142 mmol/L (135-145); Total Protein 7.5 g/dL (6.2-8.2)
[2025-03-13 10:10] LABS: Hepatitis B Virus DNA, Quant <10 IU/mL (<10); Log HBV IU/mL <1.00 (<1.00)
== END | disposition home or self-care (01) ==
LOC: RADUSWWP 06:58
PROVIDERS: ATTEND Internal Medicine Gastroenterology
DX: N20.0 Calculus of kidney (principal); B18.1 Chronic viral hepatitis B without delta-agent; K80.20 Calculus of gallbladder without cholecystitis without obstruction; K76.89 Other specified diseases of liver
CPT/HCPCS: 76705; 80053; 82105; 85025; 86707; 87350; 87517